=== PATIENT | female | born 1965 | race Caucasian/White ===

== ENCOUNTER 2018-02-05 06:39 | Day surgery (SDC) | payer BC ==
[2018-02-05] MEDS ORDERED: Ringers Lactate 1,000 ML IV ONE (07:57)
[2018-02-05] MEDS ORDERED: Phenylephrine HCl 10 MG/ML 1 ML VIAL ONE (08:16)
[2018-02-05] MEDS ORDERED: GLYCOPYRROLATE 0.2 MG/ML SYR ONE (08:16)
[2018-02-05] MEDS ORDERED: LIDOCAINE VISCOUS 2% SOLN 15 ML UDC ONE (08:37)
[2018-02-05] MEDS ORDERED: PROPOFOL 200 MG/20 ML VIAL IV ONE (09:00)
[2018-02-05] MEDS ORDERED: LIDOCAINE 1% MPF 2 ML AMPULE ONE (09:00)
[2018-02-05] MEDS ORDERED: HYDROCODONE/APAP 10/325 TAB ONE (09:51)
--- NOTE | 2018-02-05 10:48 | RAD REPORT ---
EXAM DESCRIPTION: RAD - Chest Single View - 02/05/2018 10:34 am CLINICAL HISTORY: Status post bronchoscopy. COMPARISON: None. FINDINGS: Portable technique limits examination quality. Right upper lobe lung opacity is again noted. No post bronchoscopy pneumothorax seen. The heart is no rmal in size. No displaced fractures. IMPRESSION: No postprocedure pneumothorax.
[2018-02-05 11:00] VITALS: BP 123/62; TEMP 98.4; O2SAT 100
--- NOTE | 2018-02-05 11:43 | RAD REPORT ---
EXAM DESCRIPTION: RAD - FLUORO-GUIDE FOR BRONCH UPT1HR - 02/05/2018 9:35 am CLINICAL HISTORY: BRONCHOSCOPY COMPARISON: Thorax W/ Con dated 01/16/2018 FINDINGS: Four fluoroscopic spot exposures are submitted from right-sided bronchoscopy procedure. De tails of procedure not available. Total fluoro time 4 minutes 20 seconds.
--- NOTE | 2018-02-09 11:41 | P.OP ---
Date of Service: 02/05/18 (Bronchoscopy with transbronchial biopsy of the upper lobe BAL and wire brush) Findings and Operative Technique Patient is 52 years of age admitted with a right upper lobe lung mass active smoker as a reason for bronchoscopy Narrative report after obtaining informed consent from the patient she was premedicated by anesthesia Finding normal normal vocal cords normal trachea normal bhavna normal right and left-sided bronchial anatomy no endobronchial lesions visible Was very difficult for me to access the mass with biopsy forceps multiple biopsy specimens were taken as stated above patient tolerated the procedure very well did not experience any hypertension arrhythmias findings discussed with the relative
== END 2018-02-05 10:57 | disposition home or self-care (01) ==
LOC: ENDO 06:39
PROVIDERS: ATTEND Internal Medicine Sleep Medicine
PROC: 0B9C8ZX Drainage of Right Upper Lung Lobe, Via Natural or Artificial Opening Endoscopic, Diagnostic (ICD-10-PCS; 2018-02-05)
PROC: 0BDC8ZX Extraction of Right Upper Lung Lobe, Via Natural or Artificial Opening Endoscopic, Diagnostic (ICD-10-PCS; 2018-02-05)
PROC: 0BDC8ZX Extraction of Right Upper Lung Lobe, Via Natural or Artificial Opening Endoscopic, Diagnostic (ICD-10-PCS; principal; 2018-02-05 08:00)
DX: R91.8 Other nonspecific abnormal finding of lung field (principal); F32.9 Major depressive disorder, single episode, unspecified; K21.9 Gastro-esophageal reflux disease without esophagitis; F17.210 Nicotine dependence, cigarettes, uncomplicated; J44.9 Chronic obstructive pulmonary disease, unspecified; C34.91 Malignant neoplasm of unspecified part of right bronchus or lung
CPT/HCPCS: 71045; 76000; 87015; 87102; 87116; 87206; 88108; 88305; 88312; J2001; J2370

== ENCOUNTER 2018-02-13 11:54 | Inpatient (IN) | payer BC ==
[2018-02-13 13:05] LABS: Urine Blood 1+ (NEG); Urine Glucose NEGATIVE (NEG); Urine Protein 2+ (NEG); Urine Specific Gravity 1.015 (1.005-1.030); Urine pH 5.5 (5.0-7.0)
[2018-02-13] MEDS ORDERED: NA CHLORIDE 0.9% 500 ML ONE (13:05)
[2018-02-13 13:19] LABS: Urine Amorphous Sediment 1+ /HPF (NONE SEEN); Urine Bacteria 20-50 /HPF (<20); Urine Culture Reflex Order NOT NEEDED; Urine Mucus LIGHT /HPF (NONE SEEN); Urine RBC NONE SEEN /HPF (NONE SEEN)
[2018-02-13 13:37] LABS: Absolute Monocytes 1.5 K/uL (0.1-1.3); Absolute Neutrophil 14.1 K/uL (1.8-8.0); Basophils % 0.3 % (0-1.3); Eosinophils % 0.8 % (0-4.4); Lymphocytes % 11.2 % (15.3-44.8); MCH 30.2 pg (27.0-35.0); MCV 92.4 fL (80-100); MPV 10.3 fL (7.6-11.3); Monocytes % 8.3 % (3.3-12.3); RBC Red Blood Cell Count 4.01 M/uL (3.86-4.86)
[2018-02-13] MEDS ORDERED: ACETAMINOPHEN 325 MG TABLET ONE (13:44)
[2018-02-13] MEDS ORDERED: CEFTRIAXONE/SWI 1gm 1 GM/10 ML SYR ONE (13:53)
[2018-02-13 13:54] LABS: Albumin 2.8 g/dL (3.4-5.0); Bilirubin Direct 0.6 mg/dL (0-0.2); Bilirubin Total 1.3 mg/dL (0.2-1.0); Potassium 3.3 mmol/L (3.5-5.1); Protein, Total 7.5 g/dL (6.4-8.2)
--- NOTE | 2018-02-13 14:23 | RAD REPORT ---
EXAM DESCRIPTION: Abe Pa And Lat (2 Views)02/13/2018 2:12 pm CLINICAL HISTORY: Cough COMPARISON: February 11 FINDINGS: The right upper lobe mass is unchanged. Minimal worsening in the right upper lobe reticul ar opacities has occurred. Mild right upper lobe atelectasis is present. The remainder of the exam is unremarkable
--- NOTE | 2018-02-13 14:40 | EDPHYS ---
Physician Documentation [facility] Name: Roberta Villagomez Age: 52 yrs Sex: Female : 1965 Arrival Date: 02/13/2018 Time: 11:56 Bed 20 Private MD: Anthony Hutton T ED Physician Rey Herndon HPI: 02/13 14:31 This 52 yrs old Female presents to ER via Ambulatory with complaints of Back rn Pain, Fever. 14:31 The patient presents with pain that is acute. The symptoms are located in the low back. rn Onset: The symptoms/episode began/occurred at an unknown time. The pain does not radiate. Associated signs and symptoms: Pertinent positives: none weakness. Modifying factors: The patient symptoms are alleviated by nothing, the patient symptoms are aggravated by nothing. The patient has experienced a previous episode. Reports being treated as outpt for pneumonia, had lung biopsy 2 weeks ago, presents with persistent fever and lower back pain, + increased urination and frequency.. 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/A - Hysterectomy sv Historical: - Allergies: 12:11 Blue Dye; sv 12:11 Valium; sv 12:11 Morphine; sv 12:11 excedrin; sv 12:11 larg quantities of codeine; sv - Home Meds: 12:11 Synthroid 125 mcg Oral tab 1 tab once daily [Active]; meloxicam 15 mg oral tab 1 tab sv once daily [Active]; montelukast 10 mg oral tab 1 tab once daily [Active]; Zyrtec 10 mg Oral tab 1 tab once daily [Active]; Amoxicillin-Pot Clavulanate Oral [Active]; alprazolam 0.5 mg Oral tab TID prn [Active]; [place] 10-325 mg Oral tab 1 tab every 6 hours [Active]; amitriptyline 10 mg Oral tab daily [Active]; Zantac 150 mg Oral tab 1 tab once daily [Active]; - PMHx: 12:11 None; sv - PSHx: 12:11 Cholecystectomy; Hysterectomy; sv - Family history:: not pertinent. - Hospitalizations: : No recent hospitalization is reported. ROS: 14:31 Constitutional: Negative for weight loss, Eyes: Negative for injury, pain, redness, rn and discharge, Neck: Negative for injury, pain, and swelling, Cardiovascular: Negative for chest pain, palpitations, and edema, Respiratory: Negative for wheezing, and pleuritic chest pain Abdomen/GI: Negative for abdominal pain, diarrhea, and constipation, Back: + lower back pain MS/Extremity: Negative for injury and deformity, Skin: Negative for injury, rash, and discoloration, Neuro: Negative for headache, numbness, tingling, and seizure. Exam: 14:35 Constitutional: This is a well developed, well nourished patient who is awake, alert, rn and in no acute distress. Head/Face: Normocephalic, atraumatic. Eyes: Pupils equal round and reactive to light, extra-ocular motions intact. Lids and lashes normal. Conjunctiva and sclera are non-icteric and not injected. Cornea within normal limits. Periorbital areas with no swelling, redness, or edema. Neck: Trachea midline, no thyromegaly or masses palpated, and no cervical lymphadenopathy. Supple, full range of motion without nuchal rigidity, or vertebral point tenderness. No Meningismus. Cardiovascular: tachycardic, regular, no murmur Respiratory: + mild tachypnea, no retractions, speaking full sentences Abdomen/GI: Soft, non-tender, with normal bowel sounds. No distension or tympany. No guarding or rebound. No evidence of tenderness throughout. Back: No spinal tenderness. No costovertebral tenderness. Full range of motion. MS/ Extremity: Pulses equal, no cyanosis. Neurovascular intact. Full, normal range of motion. Equal circumference. Neuro: Awake and alert, GCS 15, oriented to person, place, time, and situation. Cranial nerves II-XII grossly intact. Motor strength 5/5 in all extremities. Sensory grossly intact. Cerebellar exam normal. Normal gait. Vital Signs: 12:11 BP 96 / 65; Pulse 102; Resp 20; Temp 99; Pulse Ox 97% ; Weight 65.77 kg; Height 5 ft. 5 sv in. (165.10 cm); Pain 0/10; 13:20 Pulse 89; Resp 16; Temp 99.9(O); Pulse Ox 96% on R/A; sg 17:21 BP 112 / 73; Pulse 90; Resp 17; Temp 99.9; Pulse Ox 98% on R/A; Pain 0/10; sg 12:11 Body Mass Index 24.13 (65.77 kg, 165.10 cm) sv Tor Coma Score: 17:21 Eye Response: spontaneous(4). Verbal Response: oriented(5). Motor Response: obeys sg commands(6). Total: 15. MDM: 12:30 Patient medically screened. rn 14:35 Differential diagnosis: UTI, pneumonia. 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 Counseling: I had a detailed discussion with the patient and/or guardian regarding: the historical points, exam findings, and any diagnostic results supporting the discharge/admit diagnosis, lab results, radiology results, the need for further work-up and treatment in the hospital. Admission orders: after a detailed discussion of the patient's condition and case, the admit orders are written by me. Special discussion:. 02/13 12:55 Order name: CBC with Diff; Complete Time: 13:47 rn 02/13 12:55 Order name: Basic Metabolic Panel; Complete Time: 14:19 rn 02/13 12:55 Order name: Urine Culture rn 02/13 12:55 Order name: Urine Microscopic Only; Complete Time: 13:47 rn 02/13 12:55 Order name: Procalcitonin; Complete Time: 14:19 rn 02/13 12:55 Order name: Hepatic Function; Complete Time: 14:19 rn 02/13 12:55 Order name: Lipase; Complete Time: 14:19 rn 02/13 12:55 Order name: XRAY Chest Pa And Lat (2 Views); Complete Time: 14:28 rn 02/13 12:55 Order name: Blood Culture Adult (2) rn 02/13 13:02 Order name: Urine Dipstick--Ancillary (enter results); Complete Time: 13:47 bd 02/13 13:02 Order name: Urine --Ancillary (enter results); Complete Time: 13:47 bd 02/13 12:55 Order name: IV Start; Complete Time: 13:13 rn 02/13 12:55 Order name: Urine Dipstick-Ancillary (obtain specimen); Complete Time: 13:12 rn 02/13 12:55 Order name: Labs collected and sent; Complete Time: 13:12 rn Administered Medications: 13:31 Drug: NS 0.9% 500 ml Route: IV; Rate: bolus; Site: right antecubital; sg 13:45 Drug: Tylenol 650 mg Route: PO; sg 14:30 Follow up: Response: No adverse reaction sg 14:04 Drug: Rocephin - (cefTRIAXone) 1 grams Route: IVPB; Infused Over: 30 mins; Site: right sg antecubital; 14:15 Follow up: Response: No adverse reaction; IV Status: Completed infusion; medication sg administered slow IVP as per pharmacy protocol 15:47 Drug: NS 0.9% 1000 ml Route: IV; Rate: 1000 ml; Site: right antecubital; sg 16:50 Follow up: Response: No adverse reaction; IV Status: Completed infusion; IV Intake: sg 990ml Disposition: 02/13/18 14:40 Hospitalization ordered by Juan Smith for Inpatient Admission. Preliminary diagnosis are Pneumonia, Urinary tract infection, site not specified. - Bed requested for Telemetry/MedSurg (Inpatient). - Status is Inpatient Admission. sg - Condition is Stable. - Problem is an ongoing problem. - Symptoms have improved. UTI on Admission? Yes Signatures: Dispatcher [employer] EDLinda Mora RN RN sv Woody, Diana, RN RN dw Gay, Steven, RN RN Rey Herndon MD MD security intern: (The following items were deleted from the chart) 16:57 14:40 Hospitalization Ordered by Juan Smith DO for Inpatient Admission. Preliminary diagnosis is Pneumonia; Urinary tract infection, site not specified. Bed requested for Telemetry/MedSurg (Inpatient). Status is Inpatient Admission. Condition is Stable. Problem is an ongoing problem. Symptoms have improved. UTI on Admission? Yes. rn 17:28 16:57 02/13/2018 14:40 Hospitalization Ordered by Juan Smith DO for Inpatient sg Admission. Preliminary diagnosis is Pneumonia; Urinary tract infection, site not specified. Bed requested for Telemetry/MedSurg (Inpatient). Status is Inpatient Admission. Condition is Stable. Problem is an ongoing problem. Symptoms have improved. UTI on Admission? Yes. ned
--- NOTE | 2018-02-13 14:40 | ER ---
Nurse's Notes [facility] Name: Roberta Villagomez Age: 52 yrs Sex: Female : 1965 Arrival Date: 02/13/2018 Time: 11:56 Bed 20 Private MD: Anthony Hutton T Diagnosis: Pneumonia;Urinary tract infection, site not specified Presentation: 02/13 12:06 Presenting complaint: Patient states: chest xray already taken by Dr Escoto, dx sv pneumonia. Urine in "brown tint." c/o back pain. Fever x 3 days Tmax 103. Tylenol taken about 3 hours ago. lung biopsy done and mass found on 02/05/18. Transition of care: patient was not received from another setting of care. Onset of symptoms was February 05, 2018. Risk Assessment: Do you want to hurt yourself or someone else? Patient reports no desire to harm self or others. Care prior to arrival: None. 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/A - Hysterectomy sv Historical: - Allergies: 12:11 Blue Dye; sv 12:11 Valium; sv 12:11 Morphine; sv 12:11 excedrin; sv 12:11 larg quantities of codeine; sv - Home Meds: 12:11 Synthroid 125 mcg Oral tab 1 tab once daily [Active]; meloxicam 15 mg oral tab 1 tab sv once daily [Active]; montelukast 10 mg oral tab 1 tab once daily [Active]; Zyrtec 10 mg Oral tab 1 tab once daily [Active]; Amoxicillin-Pot Clavulanate Oral [Active]; alprazolam 0.5 mg Oral tab TID prn [Active]; [place] 10-325 mg Oral tab 1 tab every 6 hours [Active]; amitriptyline 10 mg Oral tab daily [Active]; Zantac 150 mg Oral tab 1 tab once daily [Active]; - PMHx: 12:11 None; sv - PSHx: 12:11 Cholecystectomy; Hysterectomy; sv - Family history:: not pertinent. - Hospitalizations: : No recent hospitalization is reported. Screenin:30 Abuse screen: Denies threats or abuse. Denies injuries from another. Nutritional sg screening: No deficits noted. Tuberculosis screening: No symptoms or risk factors identified. Never had TB. Fall Risk None identified. Assessment: 12:30 General: Appears in no apparent distress. uncomfortable, ill, slender, well groomed, sg well developed, well nourished, Behavior is calm, cooperative, appropriate for age. Pain: Complains of pain in left mid back and right mid back Quality of pain is described as aching, tender. Neuro: Level of Consciousness is awake, alert, obeys commands, Oriented to person, place, time, situation, Vice President Safety are equal bilaterally Moves all extremities. Full function Gait is steady, Speech is normal, Facial symmetry appears normal. Cardiovascular: Heart tones S1 S2 present Pulses are palpable in right radial artery and left radial artery. Respiratory: Reports shortness of breath on exertion Airway is patent Respiratory effort is even, unlabored, Respiratory pattern is regular, symmetrical, Breath sounds are diminished in right posterior middle lobe and right posterior lower lobe. GI: No signs and/or symptoms were reported involving the gastrointestinal system. : Reports pain in bilateral flank(s), dark urine. EENT: No signs and/or symptoms were reported regarding the EENT system. Derm: Skin is pink, warm \\T\\ dry. Musculoskeletal: No signs and/or symptoms reported regarding the musculoskeletal system. Vital Signs: 12:11 BP 96 / 65; Pulse 102; Resp 20; Temp 99; Pulse Ox 97% ; Weight 65.77 kg; Height 5 ft. 5 sv in. (165.10 cm); Pain 0/10; 13:20 Pulse 89; Resp 16; Temp 99.9(O); Pulse Ox 96% on R/A; sg 17:21 BP 112 / 73; Pulse 90; Resp 17; Temp 99.9; Pulse Ox 98% on R/A; Pain 0/10; sg 12:11 Body Mass Index 24.13 (65.77 kg, 165.10 cm) sv Tor Coma Score: 17:21 Eye Response: spontaneous(4). Verbal Response: oriented(5). Motor Response: obeys sg commands(6). Total: 15. ED Course: 11:56 Patient arrived in ED. mr 11:56 Anthony Hutton MD is Private Physician. mr 12:08 Triage completed. sv 12:11 Arm band placed on left wrist. sv 12:30 Rey Herndon MD is Attending Physician. rn 13:20 Inserted saline lock: 22 gauge in right. 5 13:30 Franck Ferrari, RN is Primary Nurse. sg 13:35 Initial lab(s) drawn, by ms, sent to lab. First set of blood cultures drawn by me, 5 Second set of blood cultures drawn by me, Urine collected:. 13:54 Inserted saline lock: 22 gauge in right antecubital area, using aseptic technique. 5 13:56 Patient has correct armband on for positive identification. Placed in gown. Bed in low mh5 position. Call light in reach. Side rails up X2. Adult w/ patient. Warm blanket given. Pulse ox on. NIBP on. 14:00 Patient moved to radiology via wheelchair. jb2 14:09 X-ray completed. Patient tolerated procedure well. jb2 14:11 XRAY Chest Pa And Lat (2 Views) In Process Unspecified. EDMS 14:39 Juan Smith DO is Hospitalizing Provider. rn Administered Medications: 13:31 Drug: NS 0.9% 500 ml Route: IV; Rate: bolus; Site: right antecubital; sg 13:45 Drug: Tylenol 650 mg Route: PO; sg 14:30 Follow up: Response: No adverse reaction sg 14:04 Drug: Rocephin - (cefTRIAXone) 1 grams Route: IVPB; Infused Over: 30 mins; Site: right sg antecubital; 14:15 Follow up: Response: No adverse reaction; IV Status: Completed infusion; medication sg administered slow IVP as per pharmacy protocol 15:47 Drug: NS 0.9% 1000 ml Route: IV; Rate: 1000 ml; Site: right antecubital; sg 16:50 Follow up: Response: No adverse reaction; IV Status: Completed infusion; IV Intake: sg 990ml Intake: 16:50 IV: 990ml; Total: 990ml. sg Outcome: 14:40 Decision to Hospitalize by Provider. rn 17:28 Patient left the ED. sg Signatures: Dispatcher [employer] EDND Linda Horowitz RN RN sv Gay, Steven, RN RN sg Rivera, Maria Atif Aparicio 2 Rey Herndon MD MD rn Martinez, Maria [facility] Corrections: (The following items were deleted from the chart) 16:26 13:20 Pulse 89bpm; Resp 90bpm; Pulse Ox 96% RA; Temp 99.9F Oral; sg sg
[2018-02-13] MEDS ORDERED: IPRATROPIUM BROM 0.5MG/2.5ML NEB PRN (15:09)
[2018-02-13] MEDS ORDERED: BENZONATATE 100 MG CAP PO PRN (15:09)
[2018-02-13] MEDS ORDERED: ALBUTEROL 2.5 MG/3 ML NEB SOL NEB PRN (15:09)
--- NOTE | 2018-02-13 15:25 | P.HP ---
Certification for Inpatient Patient admitted to: Inpatient With expected LOS: >2 Midnights Patient will require the following post-hospital care: None Practitioner: I am a practitioner with admitting privileges, knowledge of patient current condition, hospital course, and medical plan of care. Services: Services provided to patient in accordance with Admission requirements found in Title 42 Section 412.3 of the Code of Federal Regulations Patient History Date of Service: 02/13/18 Primary Care Provider: Dr. Hutton; Pulmonary-Dr. Escoto Reason for admission: Shortness of breath, fever History of Present Illness: 52-year-old female presented emergency room with increasing cough, fever and shortness of breath. Patient reports that she has been having increasing cough, shortness of breath and fever over the last several days. 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 She had been placed on Augmentin for suspected upper respiratory infection. The patient has seen pulmonology for a right upper lobe mass. Patient recently had a bronchoscopy done. Patient is to have a CT- guided needle biopsy to further evaluate the lung mass. From what she mentions , pathology was not conclusive to rule out cancer. She has reported increasing cough with sputum. Mild blood production noted. Patient reports fever as high as 102. She has been having headaches, shortness of breath and weakness. She has been reporting some dysuria. Indigestion also noted. In the ER patient was evaluated. Blood pressure is slightly decreased. Patient given IV fluids. Her oxygen level remained stable. In the ER white count elevated at 17.8, sodium 137, potassium 3.3, BUN of 16, creatinine 0.9. Urine was positive for UTI. Chest x-ray showed worsening right opacity. Right upper lung mass unchanged. Total bilirubin was elevated at 1.3, direct bilirubin 6.6, AST 69, ALT 79, alk-phos 119. Pro calcitonin was elevated at 0.71. Patient was admitted for treatment. When I evaluated the patient the ER, she appeared comfortable. She did not appear in any respiratory distress Patient reports a history of tobacco abuse but plans to quit. Patient also reports a history of hypothyroidism. Right upper lobe mass has been recently evaluated. There is a family history of small cell lung cancer. Allergies morphine Allergy (Verified 02/05/18 08:19) Itching acetaminophen [From Excedrin Migraine] Adverse Reaction (Verified 02/05/18 08:19 ) Nausea/Vomiting aspirin [From Excedrin Migraine] Adverse Reaction (Verified 02/05/18 08:19) Nausea/Vomiting caffeine [From Excedrin Migraine] Adverse Reaction (Verified 02/05/18 08:19) Nausea/Vomiting codeine Adverse Reaction (Verified 02/05/18 08:19) Nausea/Vomiting diazepam [From Valium] Adverse Reaction (Verified 02/05/18 08:19) Nausea/Vomiting Home medications list reviewed: Yes Home Medications: Amitriptyline [Elavil] 10 mg PO BEDTIME 02/05/18 Cetirizine HCl [Zyrtec] 10 mg PO DAILY 02/05/18 Levothyroxine [Synthroid] 125 mcg PO [id number] 02/05/18 Meloxicam [Mobic] 15 mg PO DAILY 02/05/18 Montelukast [Singulair] 10 mg PO DAILY 02/05/18 Ranitidine [Zantac] 150 mg PO DAILY 02/05/18 - Past Medical/Surgical History Diabetic: No -: COPD -: Tobacco abuse -: Hypothyroidism -: GERD -: Allergic rhinitis -: Right upper lobe mass -: Hysterectomy -: Cholecystectomy Psychosocial/ Personal History: Patient is . Patient has 1 child. 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 She currently has a boyfriend. - Family History Father -: Other (see notes) (Alzheimer's dementia) Mother -: Heart disease, Hypertension, Stroke, Cancer (Small-cell lung cancer, brain cancer) - Social History Smoking Status: Heavy Tobacco smoker (>10 cigarettes/day) Counseled patient to stop smoking for: less than 10 minutes Smoking therapy provided: Yes Patient receptive to therapy: Yes Alcohol use: No CD- Drugs: No Caffeine use: Yes Place of Residence: Home Review of Systems General: Fever, Chills, Sweats, Weakness, Malaise, As per HPI Eyes: Unremarkable ENT: Nose Congestion, As per HPI Respiratory: Cough, Shortness of Breath, SOB with Excertion, Sputum, Wheezing, As per HPI Cardiovascular: Unremarkable Gastrointestinal: As per HPI Genitourinary: Dysuria, Frequency, As per HPI Musculoskeletal: Back Pain, As per HPI Integumentary: As per HPI Neurological: Weakness, As per HPI Lymphatics: Unremarkable Physical Examination - Physical Exam General: Alert, In no apparent distress, Oriented x3, Cooperative HEENT: Atraumatic, Normocephalic, PERRLA, Other (Dry mucous membranes) Neck: Supple, No Thyromegaly Respiratory: Crackles/rales (Right side) Cardiovascular: Normal pulses, Regular rate/rhythm Gastrointestinal: Normal bowel sounds, Soft and benign, Non-distended, No ascites, No masses, No rebound, No guarding, Tenderness (Mild pain to the pelvic region) Musculoskeletal: No erythema, No tenderness, No warmth Integumentary: No tenderness/swelling, No erythema, No warmth, No cyanosis Neurological: Normal speech, Normal strength at 5/5 x4 extr, Normal tone, Normal affect Lymphatics: No axilla or inguinal lymphadenopathy - Studies Laboratory Data (last 24 hrs) 02/13/18 13:20: Sodium 137, Potassium 3.3 L, BUN 16, Creatinine 0.90, Glucose 103, Total Bilirubin 1.3 H, AST 69 H, ALT 79 H, Alkaline Phosphatase 119 H, Lipase 86 02/13/18 13:20: WBC 17.8 H, Hgb 12.1, Hct 37.0, Plt Count 202 Assessment and Plan - Problems (Diagnosis) (1) Pneumonia Current Visit: Yes Status: Acute Plan: Right-sided pneumonia noted. Case discussed with pulmonology. Patient will be started on Levaquin and vancomycin. Suspect sepsis. Will obtain sputum, urine and blood cultures. Will maintain sats above 90%. Will continue IV fluids. Patient recently evaluated for right upper lung mass. Patient had bronchoscopy which was not conclusive to rule out cancer. Patient is expected to have a needle biopsy of the lung in the near future. Continue with COPD treatment. Will monitor closely for changes. Qualifiers: Laterality: right Lung location: lower lobe of lung (2) UTI (urinary tract infection) Current Visit: Yes Status: Acute Plan: Patient has been started on IV antibiotic therapy. Continue as above. Continue IV fluids. Urine culture pending. Qualifiers: Urinary tract infection type: site unspecified Hematuria presence: without hematuria Qualified Code(s): N39.0 - Urinary tract infection, site not specified (3) Sepsis Current Visit: Yes Status: Acute Plan: Suspect sepsis. Continue as above. Patient given IV fluids in the emergency room. Will continue with IV fluids. Monitor electrolytes closely. Continue IV antibiotic therapy. Blood, sputum and urine culture pending. (4) COPD (chronic obstructive pulmonary disease) Current Visit: Yes Status: Chronic Plan: Continue with COPD medication. Maintain sats above 90%. Qualifiers: COPD type: chronic bronchitis Chronic bronchitis type: unspecified Qualified Code(s): J42 - Unspecified chronic bronchitis (5) Lung mass Current Visit: Yes Status: Chronic Plan: This has been evaluated recently. Bronchoscopy pathology is not conclusive to rule out cancer. Patient expected to have a needle biopsy in the near future. Await recommendations from pulmonology. (6) Tobacco abuse Current Visit: Yes Status: Chronic Plan: Patient plans to quit smoking. May need nicotine patch as needed. (7) GERD (gastroesophageal reflux disease) Current Visit: Yes Status: Chronic Plan: Will provide medication. Qualifiers: Esophagitis presence: esophagitis presence not specified Qualified Code(s) : K21.9 - Gastro-esophageal reflux disease without esophagitis (8) Hypothyroidism Current Visit: Yes Status: Chronic Plan: Will need to obtain and restart home medication. Will check tsh. Qualifiers: Hypothyroidism type: unspecified Qualified Code(s): E03.9 - Hypothyroidism , unspecified (9) Elevated liver function tests Current Visit: Yes Status: Acute Plan: Etiology unknown. Will send for hepatitis panel. Will obtain abdominal ultrasound. Will monitor lab closely. (10) Hyperbilirubinemia Current Visit: Yes Status: Acute Plan: Continue as above. (11) Dehydration Current Visit: Yes Status: Acute Plan: Continue with IV fluids. Will monitor closely. Discharge Plan: Home Plan to discharge in: Greater than 2 days - Advance Directives Does patient have a Living Will: No Does patient have a Durable POA for Healthcare: No - Code Status/Comfort Care Code Status Assessed: Yes Time Spent Managing Pts Care (In Minutes): 55
[2018-02-13] MEDS ORDERED: NA CHLORIDE 0.9% 1,000 ML ONE (15:42)
[2018-02-13] MEDS: Levofloxacin500mg IV 500 MG/100 ML BAG IV SCH (16:00)
[2018-02-13] MEDS: NA CHLORIDE 0.9% 1,000 ML IV SCH (16:00)
[2018-02-13] MEDS ORDERED: Levofloxacin500mg IV 500 MG/100 ML BAG IV ONE (16:52)
[2018-02-13] MEDS ORDERED: ENOXAPARIN 40 MG/0.4 ML SQ ONE (16:53)
[2018-02-13] MEDS: ENOXAPARIN 40 MG/0.4 ML SQ SCH (17:00)
[2018-02-13] MEDS ORDERED: PNEUMOCOCCAL VACCINE 0.5 ML IMVAC ONE (19:00)
[2018-02-13] MEDS: ARFORMOTEROL TARTRATE 15 MCG/2 ML VIAL.NEB NEB SCH (19:32)
[2018-02-13] MEDS: ACETAMINOPHEN 500 MG TAB PO PRN (20:00)
[2018-02-13] MEDS: VANCOMYCIN 1.25 GM in NA CHLORIDE 0.9% 250 ML IVPB SCH (20:01)
[2018-02-13] MEDS: IBUPROFEN 400 MG TAB PO PRN (22:26)
[2018-02-14] MEDS: NA CHLORIDE 0.9% 1,000 ML IV SCH ×5 (01:58→22:08)
[2018-02-14 05:26] LABS: Absolute Lymphocytes (CBC) 1.2 K/uL (0.7-4.9); Absolute Monocytes 1.1 K/uL (0.1-1.3); Absolute Neutrophil 11.6 K/uL (1.8-8.0); Basophils % 0.4 % (0-1.3); Eosinophils % 1.1 % (0-4.4); Hematocrit 33.4 % (36.0-45.0); Lymphocytes % 8.7 % (15.3-44.8); MCH 31.5 pg (27.0-35.0); MCV 92.3 fL (80-100); MPV 10.8 fL (7.6-11.3); Monocytes % 7.9 % (3.3-12.3); RBC Red Blood Cell Count 3.62 M/uL (3.86-4.86)
[2018-02-14 05:58] LABS: ALT/SGPT 62 U/L (12-78); AST/SGOT 41 U/L (15-37); Albumin 2.3 g/dL (3.4-5.0); Alkaline Phosphatase 121 U/L (45-117); BUN Blood Urea Nitrogen 7 mg/dL (7-18); Bicarbonate 24 mmol/L (21-32); Bilirubin Total 1.3 mg/dL (0.2-1.0); Glucose Level 93 mg/dL (74-106); Magnesium 1.9 mg/dL (1.8-2.4); Potassium 3.3 mmol/L (3.5-5.1); Protein, Total 6.2 g/dL (6.4-8.2); Sodium Level 140 mmol/L (136-145); Thyroid Stimulating Hormone 0.18 uIU/mL (0.36-3.74)
[2018-02-14] MEDS: PANTOPRAZOLE 40MG TABLET PO SCH (06:22)
[2018-02-14] MEDS: KCL 20 MEQ/100 mL IVPB 20 MEQ/100 ML BAG IV SCH ×2 (07:07→09:38)
[2018-02-14] MEDS: ARFORMOTEROL TARTRATE 15 MCG/2 ML VIAL.NEB NEB SCH ×2 (07:50→19:32)
[2018-02-14] MEDS: ACETAMINOPHEN 500 MG TAB PO PRN ×3 (07:58→23:16)
--- NOTE | 2018-02-14 10:35 | P.PN ---
Subjective Date of Service: 02/14/18 Primary Care Provider: Dr. Hutton; Pulmonary-Dr. Escoto Chief Complaint: Right upper lobe pneumonia Patient is 52 years of age she did undergo bronchoscopy last week for a right upper lobe lung mass which was nondiagnostic patient contacted me earlier on last week complaining of fevers shortness of breath saw her in my office and was prescribed Augmentin, patient call me yesterday over continued to get worse and was admitted to the hospital with a diagnosis of right upper lobe pneumonia that continues to have high fever although is feeling better white count is declining Review of Systems General: Fever, Weakness Respiratory: Cough, Shortness of Breath Physical Examination - Vital Signs Temperature: 104.2 F Blood Pressure: 120/69 Pulse: 112 Respirations: 20 Pulse Ox (%): 94 - Physical Exam General: Alert, Oriented x3 Neck: Supple Respiratory: Clear to auscultation bilaterally, Crackles/rales (Crackles in the right upper zone) Cardiovascular: No edema, Normal S1 S2 - Studies Laboratory Data (last 24 hrs) 02/13/18 13:20: Sodium 137, Potassium 3.3 L, BUN 16, Creatinine 0.90, Glucose 103, Total Bilirubin 1.3 H, AST 69 H, ALT 79 H, Alkaline Phosphatase 119 H, Lipase 86 02/13/18 13:20: WBC 17.8 H, Hgb 12.1, Hct 37.0, Plt Count 202 Assessment & Plan - Problems (Diagnosis) (1) Pneumonia Current Visit: Yes Status: Acute Plan: Patient is 52 years of age admitted with a right upper lobe pneumonia status post bronchoscopy last week failed outpatient antibiotic therapy he is high fever white count elevated on mission is declining cultures pending I have advised her to reschedule the FNA continue with vancomycin and levofloxacin room -air saturation is satisfactory continue with bronchodilators Qualifiers: Laterality: right Lung location: lower lobe of lung
--- NOTE | 2018-02-14 11:06 | RAD REPORT ---
EXAM DESCRIPTION: RAD - Chest Pa And Lat (2 Views) - 02/14/2018 8:43 am CLINICAL HISTORY: follow up pneumonia, right upper lung mass Chest pain. COMPARISON: Chest Pa And Lat (2 Views) dated 02/13/2018; Chest Pa And Lat (2 Views) dated 02/11/2018; Chest Single View dated 02/05/2018; Chest Pa And Lat (2 Views) dated 01/15/2018; Thorax W/ Con dated FINDINGS: Right upper lobe lung opacities slightly progressive peripherally in the right upper lobe since the comparative study. The central portion of the right upper lobe rounded lesion appears more cavitary/necrotic. The left lung is clear. The heart is normal in size. No displaced fractures. IMPRESSION: Mild progression of right upper lobe pulmonary opacities as detailed above.
--- NOTE | 2018-02-14 11:15 | RAD REPORT ---
EXAM DESCRIPTION: US - Abdomen Exam Complete - 02/14/2018 9:51 am CLINICAL HISTORY: Abdominal pain. Elevated liver function, hyperbilirubinemia COMPARISON: No comparisons FINDINGS: The liver is normal in size, shape and echotexture. No focal liver lesions or intrahepatic biliary dilatation is seen. Cholecystectomy. Common bile duct is normal in caliber measuring 3 mm. Both kidneys are normal in size, shape and echotexture. No hydronephrosis, focal lesion of concern or perinephric fluid. The spleen is normal in size measuring 9 cm. The pancreas and aorta are obscured by bowel gas. The visualized aspects of the IVC are grossly normal. IMPRESSION: Unremarkable study except for limited assessment of the pancreas and aorta due to bowel gas. Cholecystectomy.
[2018-02-14] MEDS: VANCOMYCIN 1.25 GM in NA CHLORIDE 0.9% 250 ML IVPB SCH (11:49)
[2018-02-14] MEDS: IPRATROPIUM BROM 0.5MG/2.5ML NEB SCH ×2 (14:07→19:32)
--- NOTE | 2018-02-14 15:00 | PN ---
Date of Progress Note: 02/14/2018 Subjective: Currently the patient is lying in bed. She looks comfortable. Shortness of breath impr kelli. No chest pain. No chills overnight. Actually she had a fever overnight and her temperature w as 104, but not any more. She continued to be tachycardic. No shortness of breath. Blood pressure normal. Physical Examination: Vital Signs: Blood pressure 120/69, respiratory rate 20, pulse 112, temperature 104. General: She is alert and oriented x3. Does not look in any distress. HEENT: Atraumatic, normocephalic. PERRLA. Oral mucosa is moist. Neck: Supple. No JVD. No carotid bruits. Chest: Clear to auscultation with crackles in the right upper lobe. Heart: Tachy. No gallop or murmur. Regular rate and rhythm. Abdomen: Soft, nontender. No masses. No hepatosplenomegaly. Positive bowel sounds. Extremities: No clubbing, cyanosis, or edema. No calf tenderness. Neurologic: Grossly intact. Cranial nerve exam 2 through 12 intact. Normal sensation. Normal refl exes. Normal muscle strength. Laboratory Data: Labs today showed white blood cells down from 17 to 14, hemoglobin 11.4, platelets within normal. Chemistry within normal except for potassium of 3.3, chloride 110, bilirubin 4.3. T down to 41, ALT down to normal. TSH of low at 0.18. Assessment And Plan: 1.Right upper lobe pneumonia. Continue IV antibiotic with Levaquin and vancomycin. The patient had a good response. Her white blood cells are going down, cultures so far negative. She is still spik ing fever. 2.Continue bronchodilator as well. 3.Right upper lobe lung mass status post nondiagnostic biopsy. The patient is scheduled to have an other biopsy in [place] as outpatient. 4.Urinary tract infection. Urine culture less than 10,000. Coli being covered through the Levaquin . 5.Drug abuse. Advised to quit. 6.Chronic obstructive pulmonary disease. Continue bronchodilator. Followed by Dr. Smith. 7.History of hypothyroidism. TSH is low. T4 is slightly elevated. Resume her thyroid medications 125 mcg daily. 8.History of anxiety. Will continue Xanax. 9.Repeated LFTs and hepatitis panel still pending, but they are trending down. 10.Dehydration. On IV fluids. The patient oral intake is good. Follow labs. 11.Deep vein thrombosis prophylaxis with Lovenox. ESA/LITZY Voice ID: [id number] Report ID: [id number]
[2018-02-14] MEDS: Levofloxacin500mg IV 500 MG/100 ML BAG IV SCH (16:33)
[2018-02-14] MEDS: ENOXAPARIN 40 MG/0.4 ML SQ SCH (16:33)
[2018-02-14] MEDS: IBUPROFEN 400 MG TAB PO PRN (16:39)
[2018-02-14] MEDS: AMITRIPTYLINE 10 MG TAB PO SCH (20:51)
[2018-02-15] MEDS: IPRATROPIUM BROM 0.5MG/2.5ML NEB SCH ×4 (01:43→19:07)
[2018-02-15 04:09] LABS: Absolute Lymphocytes (CBC) 1.2 K/uL (0.7-4.9); Absolute Monocytes 1.3 K/uL (0.1-1.3); Absolute Neutrophil 14.3 K/uL (1.8-8.0); Basophils % 0.3 % (0-1.3); Eosinophils % 0.2 % (0-4.4); Hematocrit 30.6 % (36.0-45.0); Lymphocytes % 7.1 % (15.3-44.8); MCH 30.1 pg (27.0-35.0); MCV 91.9 fL (80-100); MPV 10.5 fL (7.6-11.3); Monocytes % 7.5 % (3.3-12.3); RBC Red Blood Cell Count 3.33 M/uL (3.86-4.86)
[2018-02-15 04:33] LABS: ALT/SGPT 48 U/L (12-78); AST/SGOT 27 U/L (15-37); Albumin 2.1 g/dL (3.4-5.0); Alkaline Phosphatase 127 U/L (45-117); BUN Blood Urea Nitrogen 5 mg/dL (7-18); Bicarbonate 20 mmol/L (21-32); Glucose Level 93 mg/dL (74-106); Magnesium 1.6 mg/dL (1.8-2.4); Potassium 3.5 mmol/L (3.5-5.1); Protein, Total 5.7 g/dL (6.4-8.2); Sodium Level 141 mmol/L (136-145)
[2018-02-15] MEDS: VANCOMYCIN 1.25 GM in NA CHLORIDE 0.9% 250 ML IVPB SCH ×2 (05:05→17:42)
[2018-02-15] MEDS: NA CHLORIDE 0.9% 1,000 ML IV SCH (05:05)
[2018-02-15] MEDS: LEVOTHYROXINE SOD 0.125 MG TAB PO SCH (05:06)
[2018-02-15] MEDS: PANTOPRAZOLE 40MG TABLET PO SCH (05:06)
[2018-02-15] MEDS ORDERED: POTASSIUM 25 MEQ EFFERV TAB PO ONE (05:37)
[2018-02-15] MEDS: ONDANSETRON 4 MG/2 ML VIAL IV PRN (06:23)
[2018-02-15] MEDS: IBUPROFEN 400 MG TAB PO PRN ×3 (06:26→21:58)
[2018-02-15] MEDS: ARFORMOTEROL TARTRATE 15 MCG/2 ML VIAL.NEB NEB SCH ×2 (07:48→19:07)
[2018-02-15] MEDS ORDERED: MAGNESIUM SULFATE 1 gm IVPB 1 GM/100 ML BAG IV ONE (08:00)
[2018-02-15] MEDS: MELOXICAM 7.5 MG TAB PO SCH (08:48)
[2018-02-15] MEDS: MONTELUKAST 10 MG TAB PO SCH (08:49)
[2018-02-15] MEDS: CETIRIZINE HCL 5 MG TABLET PO SCH (08:49)
[2018-02-15] MEDS: RANITIDINE 150 MG TABLET PO SCH (08:49)
--- NOTE | 2018-02-15 10:22 | P.PN ---
Subjective Date of Service: 02/15/18 Primary Care Provider: Dr. Hutton; Pulmonary-Dr. Escoto Chief Complaint: Right upper lobe pneumonia Patient is feeling better coughing up some productive sputum no fever today fever seems to be declining no chest pain Review of Systems General: Weakness Respiratory: Cough, Shortness of Breath Physical Examination - Vital Signs Temperature: 98.7 F Blood Pressure: 103/59 Pulse: 96 Respirations: 18 Pulse Ox (%): 94 - Physical Exam General: Alert, Oriented x3 Respiratory: Clear to auscultation bilaterally, Crackles/rales (Crackles on the right side), Expiratory wheezes Cardiovascular: No edema, Regular rate/rhythm - Studies Microbiology Data (last 24 hrs): 02/13/18 12:45 Clean Catch Urine [place] Count - Final <10,000 CFU/ML. 02/13/18 12:45 Clean Catch Urine - Final Assessment & Plan - Problems (Diagnosis) (1) Pneumonia Current Visit: Yes Status: Acute Plan: Patient admitted with right upper lobe pneumonia white count is stable on broad- spectrum antibiotics change to p.o. high-dose Levaquin continue with vancomycin repeat sputum cultures chest x-rays Dc IV fluids Qualifiers: Laterality: right Lung location: lower lobe of lung
[2018-02-15] MEDS: ACETAMINOPHEN 500 MG TAB PO PRN (13:42)
--- NOTE | 2018-02-15 13:43 | PN ---
Subjective: Currently, the patient is sitting in the chair. She is doing well. She has not had a g ood night sleep last night. She had insomnia. She has no significant shortness of breath, but she c ontinued to have cough. She spiked a fever as well yesterday up to 102. This morning, she had a fev er of 99.8. at the bedside. Objective: Vital Signs: Blood pressure is 100/59, respiratory rate 18, pulse 87, temperature 98.3. General: The patient is alert and oriented x3. Does not look in any distress. HEENT: Atraumatic, normocephalic. PERRLA. Oral mucosa is moist. Neck: Supple. No JVD. No bruits. Chest: Clear to auscultation with fine crackles on the right base with expiratory wheezing. Heart: Regular rate and rhythm. S1, S2 normal. No gallop or murmur. Abdomen: Soft. No masses. No hepatosplenomegaly. Positive bowel sounds. Extremities: No clubbing, cyanosis, or edema. No calf tenderness. Neurologic: Grossly intact. Laboratory Data: Today, white blood cells up from 14 to 16.8, hemoglobin 10, platelets 201. Crime Prevention Worker ry within normal including potassium back to normal, magnesium 1.6, bilirubin down to normal. Hepati tis profile is still pending. Chest x-ray from yesterday showed mild progression of right upper lobe pulmonary opacities. Assessment And Plan: 1.Right lower lobe pneumonia. Continue antibiotic with vancomycin and Levaquin. Dr. Tigist lacy hed the patient to oral Levaquin. White blood cells slightly up, blood cultures so far all negative. The patient has not spiked fever in the last 12 hours, but earlier. Continue bronchodilators. [facility] x-ray yesterday showed mild progression of pneumonia. We will repeat chest x-ray tomorrow morning . 2.Questionable urinary tract infection. Culture of the urine showed less than 10,000 colony, most l ikely contamination. 3.Chronic obstructive pulmonary disease, emphysema. Continue bronchodilator. Followed by Dr. Alexander causey. 4.Hypothyroidism. Continue Synthroid 125 mcg. 5.History of anxiety. She is on p.r.n. Xanax, which can be used also for her insomnia. 6.Elevated liver function tests. Bilirubin down to normal. Hepatitis profile ordered on Friday and still pending. 7.Deep venous thrombosis prophylaxis with Lovenox. 8.Hypomagnesemia. We will place on magnesium protocol. 9.Right upper lobe lung mass reported nondiagnostic biopsy. The patient will schedule for another b iopsy in [place] as outpatient. Discharge Plan: Depending on how the patient is feeling tomorrow and hopefully home in the next 24-4 8 hours. ESA/LITZY Voice ID: [id number] Report ID: [id number]
[2018-02-15 15:42] VITALS: BMI 23.9
[2018-02-15 16:43] LABS: Magnesium 1.9 mg/dL (1.8-2.4)
[2018-02-15] MEDS: levoFLOXacin 750 MG TAB PO SCH (17:42)
[2018-02-15] MEDS: ENOXAPARIN 40 MG/0.4 ML SQ SCH (17:42)
[2018-02-15] MEDS: AMITRIPTYLINE 10 MG TAB PO SCH (20:13)
[2018-02-16] MEDS: IPRATROPIUM BROM 0.5MG/2.5ML NEB SCH ×4 (01:54→20:00)
[2018-02-16] MEDS: ONDANSETRON 4 MG/2 ML VIAL IV PRN (02:46)
[2018-02-16] MEDS: ACETAMINOPHEN 500 MG TAB PO PRN ×3 (02:53→20:44)
[2018-02-16] MEDS: VANCOMYCIN 1.25 GM in NA CHLORIDE 0.9% 250 ML IVPB SCH ×2 (04:05→17:00)
[2018-02-16] MEDS: ALPRAZOLAM 0.5 MG TABLET PO PRN ×2 (04:10→21:19)
[2018-02-16 04:24] LABS: Absolute Lymphocytes (CBC) 0.8 K/uL (0.7-4.9); Absolute Monocytes 1.1 K/uL (0.1-1.3); Absolute Neutrophil 11.9 K/uL (1.8-8.0); Basophils % 0.2 % (0-1.3); Hematocrit 29.9 % (36.0-45.0); Lymphocytes % 5.9 % (15.3-44.8); MCH 30.3 pg (27.0-35.0); MCV 92.2 fL (80-100); MPV 10.7 fL (7.6-11.3); Monocytes % 7.9 % (3.3-12.3); RBC Red Blood Cell Count 3.24 M/uL (3.86-4.86)
[2018-02-16 04:38] LABS: ALT/SGPT 52 U/L (12-78); AST/SGOT 42 U/L (15-37); Albumin 1.8 g/dL (3.4-5.0); Alkaline Phosphatase 148 U/L (45-117); BUN Blood Urea Nitrogen 6 mg/dL (7-18); Bicarbonate 23 mmol/L (21-32); Bilirubin Total 0.7 mg/dL (0.2-1.0); Glucose Level 96 mg/dL (74-106); Magnesium 1.7 mg/dL (1.8-2.4); Potassium 3.3 mmol/L (3.5-5.1); Protein, Total 5.4 g/dL (6.4-8.2); Sodium Level 142 mmol/L (136-145)
[2018-02-16] MEDS: LEVOTHYROXINE SOD 0.125 MG TAB PO SCH (05:50)
[2018-02-16] MEDS ORDERED: MAGNESIUM SULFATE 1 gm IVPB 1 GM/100 ML BAG IV ONE (06:00)
[2018-02-16] MEDS ORDERED: POTASSIUM 25 MEQ EFFERV TAB PO ONE ×2 (06:30→14:00)
[2018-02-16] MEDS: PANTOPRAZOLE 40MG TABLET PO SCH (06:40)
[2018-02-16] MEDS: ARFORMOTEROL TARTRATE 15 MCG/2 ML VIAL.NEB NEB SCH ×2 (07:41→20:00)
--- NOTE | 2018-02-16 07:49 | RAD REPORT ---
EXAM DESCRIPTION: Abe Single View02/16/2018 6:49 am CLINICAL HISTORY: Chest pain COMPARISON: February 14 FINDINGS: Right upper lobe cavity appears enlarged. Mild worsening in right lung opacities has also progressed. No other change is noted
[2018-02-16] MEDS: IBUPROFEN 400 MG TAB PO PRN ×2 (07:54→15:53)
[2018-02-16] MEDS: CETIRIZINE HCL 5 MG TABLET PO SCH (08:10)
[2018-02-16] MEDS: MONTELUKAST 10 MG TAB PO SCH (08:10)
[2018-02-16] MEDS: MELOXICAM 7.5 MG TAB PO SCH (08:10)
[2018-02-16] MEDS: RANITIDINE 150 MG TABLET PO SCH (08:11)
[2018-02-16] MEDS ORDERED: HYDROCODONE/CHLORPHEN 5 ML/OSYR PO PRN (08:51)
--- NOTE | 2018-02-16 09:01 | P.PN ---
Subjective Date of Service: 02/16/18 Primary Care Provider: Dr. Hutton; Pulmonary-Dr. Escoto Chief Complaint: Right upper lobe pneumonia Subjective: Other (Patient with increased sputum production.) Physical Examination - Vital Signs Temperature: 99.6 F Blood Pressure: 138/77 Pulse: 108 Respirations: 20 Pulse Ox (%): 96 - Physical Exam General: Alert, In no apparent distress, Oriented x3, Cooperative HEENT: Atraumatic Neck: Supple Respiratory: Diminished (Slightly diminished to the right side) Cardiovascular: Normal pulses, Regular rate/rhythm Gastrointestinal: Normal bowel sounds, Soft and benign, Non-distended, No tenderness, No masses, No rebound, No guarding Musculoskeletal: No erythema, No tenderness, No warmth Integumentary: No erythema, No warmth, No cyanosis Neurological: Normal speech, Normal strength at 5/5 x4 extr, Normal tone, Normal affect Lymphatics: No axilla or inguinal lymphadenopathy - Studies Microbiology Data (last 24 hrs): 02/13/18 12:45 Clean Catch Urine [place] Count - Final <10,000 CFU/ML. 02/13/18 12:45 Clean Catch Urine - Final Medications List Reviewed: Yes Assessment & Plan - Problems (Diagnosis) (1) Pneumonia Onset Date: 02/16/18 Current Visit: Yes Status: Acute Plan: X-ray shows cavitary area to the right upper lung. Case discussed with pulmonology. Will continue with Levaquin and vancomycin. IV Zosyn added. Will obtain CT scan. Patient will be placed in isolation. Sputum culture for AFB will be obtained. Will start IV fluids. Will maintain sats above 90%. Overall improved. Qualifiers: Laterality: right Lung location: lower lobe of lung (2) Sepsis Onset Date: 02/16/18 Current Visit: Yes Status: Acute Plan: Continue with above plan of care. (3) COPD (chronic obstructive pulmonary disease) Onset Date: 02/16/18 Current Visit: Yes Status: Chronic Plan: Continue with COPD medication. Maintain sats above 90%. Qualifiers: COPD type: chronic bronchitis Chronic bronchitis type: unspecified Qualified Code(s): J42 - Unspecified chronic bronchitis (4) Lung mass Onset Date: 02/16/18 Current Visit: Yes Status: Chronic Plan: This has been evaluated recently. Bronchoscopy pathology is not conclusive to rule out cancer. Patient with suspected right cavitary lesion to the right upper lobe. Doubt lung cancer process. Case discussed with pulmonology. (5) Tobacco abuse Onset Date: 02/16/18 Current Visit: Yes Status: Chronic Plan: Patient plans to quit smoking. Will provide nicotine patch as needed. (6) GERD (gastroesophageal reflux disease) Onset Date: 02/16/18 Current Visit: Yes Status: Chronic Plan: Will provide medication. Qualifiers: Esophagitis presence: esophagitis presence not specified Qualified Code(s) : K21.9 - Gastro-esophageal reflux disease without esophagitis (7) Hypothyroidism Onset Date: 02/16/18 Current Visit: Yes Status: Chronic Plan: Continue with medication Qualifiers: Hypothyroidism type: unspecified Qualified Code(s): E03.9 - Hypothyroidism , unspecified (8) Elevated liver function tests Onset Date: 02/16/18 Current Visit: Yes Status: Acute Plan: Etiology unknown. Hepatitis panel pending (9) Hyperbilirubinemia Onset Date: 02/16/18 Current Visit: Yes Status: Acute Plan: Continue as above. (10) Dehydration Onset Date: 02/16/18 Current Visit: Yes Status: Acute Plan: Continue with IV fluids. Will monitor closely. (11) Cavitary pneumonia Current Visit: Yes Status: Acute Plan: Continue as above (12) Hypokalemia Current Visit: Yes Status: Acute Plan: Continue to monitor and replace. Replacement protocol in place. (13) Hypomagnesemia Current Visit: Yes Status: Acute Plan: Continue to monitor and replace. Replaced in protocol in place. Discharge Plan: Home Plan to discharge in: Greater than 2 days Time Spent Managing Pts Care (In Minutes): 55
[2018-02-16] MEDS: PIPER/TAZO/NS 4.5gm 4.5 GM/100 ML BAG IVPB SCH ×3 (09:32→18:11)
[2018-02-16] MEDS: NACHLORIDE 0.45% 1,000 ML IV SCH ×2 (10:41→22:20)
--- NOTE | 2018-02-16 11:30 | RAD REPORT ---
EXAM DESCRIPTION: CT - Thorax Wo Con CLINICAL HISTORY: Chest pain pneumonia COMPARISON: Thorax W/ Con dated 01/16/2018; Abdomen Exam Complete dated 02/14/2018; Chest Single View dated 02/16/2018 FINDINGS: Significant airspace consolidation is seen involving the right middle lobe and posterior a spect of the right upper lobe. The findings are significantly progressive since 01/16/2018. A large c avitary component is seen in the right upper lobe measuring 4 x 6 cm. Small right pleural effusion. N o pneumothorax. Small hiatal hernia. Enlarged adenopathy is present in the right hilar station measuring 2.6 x 2.1 cm, precarinal and pret srinivas stations measuring 2.2 x 1.1 cm and 1.5 x 1.6 cm respectively. No concerning bony finding. No gross upper abdominal finding. All CT scans are performed using dose optimization technique as appropriate and may include automated exposure control or mA/KV adjustment according to patient size. IMPRESSION: Significant progression in right upper lobe and right middle lobe airspace consolidation with large cavitary component in the right upper lobe. Given the rapid progression, infection is the most likely etiology including the possibility of tuberculosis, fungal or cavitary pneumonia.
--- NOTE | 2018-02-16 12:58 | P.PN ---
Subjective Date of Service: 02/16/18 Primary Care Provider: Dr. Hutton; Pulmonary-Dr. Escoto Chief Complaint: Right upper lobe pneumonia Subjective: Worsening Patient is still complaining of fever coughing up copious amounts of productive sputum chest x-rays abnormal now shows right upper lobe cavitary changes Review of Systems General: Weakness Respiratory: Cough, Shortness of Breath, Pleuritic Pain Physical Examination - Vital Signs Temperature: 98.6 F Blood Pressure: 102/65 Pulse: 96 Respirations: 20 Pulse Ox (%): 96 - Physical Exam General: Alert, Oriented x3, Mild distress Neck: Supple Respiratory: Crackles/rales (Crackles in the right upper zone), Expiratory wheezes Cardiovascular: No edema, Regular rate/rhythm - Studies Medications List Reviewed: Yes Assessment & Plan - Problems (Diagnosis) (1) Pneumonia Onset Date: 02/16/18 Current Visit: Yes Status: Acute Plan: Patient is 52 years of age admitted with a right upper lobe pneumonia she has progressive cavitary changes in the right upper lobe recent bronchoscopy was done inflammatory changes nursing staff to request preliminary results for AFB and fungus from [employer] [facility] labs I have added Zosyn AFB cultures ordered again repeat sputum cultures pending continue with vanc and p.o. levofloxacin white count is declining patient has progression of for cavitary pneumonia on the CT scan Qualifiers: Pneumonia type: due to unspecified organism Laterality: right Lung location: lower lobe of lung Qualified Code(s): J18.1 - Lobar pneumonia, unspecified organism
--- NOTE | 2018-02-16 15:27 | ECHO ---
HEIGHT: 5 ft 5 in WEIGHT: 144 lb 0 oz DATE OF STUDY: 02/16/[address]: Juan Smith DO 2-DIMENSIONAL: YES M.MODE: YES DOPPLER: YES COLOR FLOW: YES TDS: NO PORTABLE: NO DEFINITY: NO BUBBLE STUDY: NO DIAGNOSIS: SHORTNESS OF BREATH CARDIAC HISTORY: CATHERIZATION: NO SURGERY: NO PROSTHETIC VALVE: NO PACEMAKER: NO MEASUREMENTS (cm) DIASTOLIC (NORMALS) SYSTOLIC (NORMALS) IVSd 0.9 (0.6-1.2) LA Diam 2.7 (1.9-4.0) LVEF 61% LVIDd 3.6 (3.5-5.7) LVIDs 2.4 (2.0-3.5) %FS 32% LVPWd 1.0 (0.6-1.2) Ao Diam 2.1 (2.0-3.7) 2 DIMENSIONAL ASSESSMENT: RIGHT ATRIUM: NORMAL LEFT ATRIUM: NORMAL RIGHT VENTRICLE: NORMAL LEFT VENTRICLE: NORMAL TRICUSPID VALVE: NORMAL MITRAL VALVE: NORMAL PULMONIC VALVE: NORMAL AORTIC VALVE: NORMAL PERICARDIAL EFFUSION: NONE AORTIC ROOT: NORMAL LEFT VENTRICULAR WALL MOTION: NORMAL. DOPPLER/COLOR FLOW: MILD MITRAL REGURGITATION. COMMENTS: NORMAL 2D ECHO, MILD MITRAL REGURGITATION. TECHNOLOGIST: MIKEL AVENDANO
[2018-02-16] MEDS: ENOXAPARIN 40 MG/0.4 ML SQ SCH (17:00)
[2018-02-16] MEDS: levoFLOXacin 750 MG TAB PO SCH (17:00)
[2018-02-16] MEDS: AMITRIPTYLINE 10 MG TAB PO SCH (20:45)
[2018-02-17] MEDS: PIPER/TAZO/NS 4.5gm 4.5 GM/100 ML BAG IVPB SCH ×4 (00:55→17:28)
[2018-02-17] MEDS: IBUPROFEN 400 MG TAB PO PRN (00:56)
[2018-02-17] MEDS: IPRATROPIUM BROM 0.5MG/2.5ML NEB SCH ×4 (02:00→20:00)
[2018-02-17] MEDS: NACHLORIDE 0.45% 1,000 ML IV SCH ×2 (04:27→12:22)
[2018-02-17 04:29] LABS: Absolute Monocytes 1.3 K/uL (0.1-1.3); Absolute Neutrophil 13.5 K/uL (1.8-8.0); Basophils % 0.2 % (0-1.3); Eosinophils % 1.3 % (0-4.4); Hematocrit 30.4 % (36.0-45.0); Lymphocytes % 6.3 % (15.3-44.8); MCH 30.5 pg (27.0-35.0); MCV 92.8 fL (80-100); RBC Red Blood Cell Count 3.27 M/uL (3.86-4.86)
[2018-02-17 05:32] LABS: ALT/SGPT 61 U/L (12-78); AST/SGOT 47 U/L (15-37); Albumin 1.7 g/dL (3.4-5.0); Alkaline Phosphatase 189 U/L (45-117); BUN Blood Urea Nitrogen 8 mg/dL (7-18); Bicarbonate 26 mmol/L (21-32); Bilirubin Total 1.2 mg/dL (0.2-1.0); Glucose Level 94 mg/dL (74-106); Potassium 3.6 mmol/L (3.5-5.1); Protein, Total 5.4 g/dL (6.4-8.2); Sodium Level 139 mmol/L (136-145)
[2018-02-17] MEDS: VANCOMYCIN 1.25 GM in NA CHLORIDE 0.9% 250 ML IVPB SCH (05:49)
[2018-02-17] MEDS: PANTOPRAZOLE 40MG TABLET PO SCH (05:50)
[2018-02-17] MEDS: LEVOTHYROXINE SOD 0.125 MG TAB PO SCH (05:54)
[2018-02-17] MEDS ORDERED: POTASSIUM 25 MEQ EFFERV TAB PO ONE (06:30)
[2018-02-17] MEDS: ARFORMOTEROL TARTRATE 15 MCG/2 ML VIAL.NEB NEB SCH ×2 (08:00→20:00)
--- NOTE | 2018-02-17 08:16 | RAD REPORT ---
EXAM DESCRIPTION: RAD - Chest Single View - 02/17/2018 5:47 am CLINICAL HISTORY: Pneumonia Chest pain. COMPARISON: Chest Single View dated 02/16/2018; Chest Pa And Lat (2 Views) dated 02/14/2018; Chest Pa And Lat (2 Views) dated 02/13/2018; Chest Pa And Lat (2 Views) dated 02/11/2018 FINDINGS: Portable technique limits examination quality. Since 02/16/2018 study, mild improvement in right lung aeration is noted. Cavitary lesion in the righ t apex appears stable. Left lung is grossly clear. The heart is normal in size. No displaced fracture s. IMPRESSION: Mild improvement in right lung aeration since comparative study.
[2018-02-17] MEDS ORDERED: BENZONATATE 100 MG CAP PO SCH (09:00)
[2018-02-17] MEDS: HYDROCODONE/APAP 5/325 MG TAB PO PRN ×2 (09:10→16:32)
[2018-02-17] MEDS: CETIRIZINE HCL 5 MG TABLET PO SCH (09:11)
[2018-02-17] MEDS: MONTELUKAST 10 MG TAB PO SCH (09:11)
[2018-02-17] MEDS: MELOXICAM 7.5 MG TAB PO SCH (09:11)
[2018-02-17] MEDS: RANITIDINE 150 MG TABLET PO SCH (09:12)
[2018-02-17] MEDS: BENZONATATE 100 MG CAP PO PRN (09:34)
[2018-02-17] MEDS: HYDROCODONE/CHLORPHEN 5 ML/OSYR PO SCH ×2 (09:34→21:01)
[2018-02-17 11:06] LABS: HIV 1/2 Antibody Diff Not indicated.; HIV AG/AB 4TH GEN Non-reactive (Non-reactive)
--- NOTE | 2018-02-17 12:41 | P.PN ---
Subjective Date of Service: 02/17/18 Primary Care Provider: Dr. Hutton; Pulmonary-Dr. Escoto Chief Complaint: Right upper lobe pneumonia No significant change see still is coughing copious amounts of purulent sputum complaining of pain on the right side slight fever bodyaches Review of Systems General: Weakness Respiratory: Cough, Shortness of Breath Cardiovascular: Chest Pain Physical Examination - Vital Signs Temperature: 98.7 F Blood Pressure: 100/59 Pulse: 93 Respirations: 18 Pulse Ox (%): 92 - Physical Exam General: Alert, Moderate distress Respiratory: Crackles/rales (Crackles on the right side), Expiratory wheezes Cardiovascular: No edema, Regular rate/rhythm - Studies Medications List Reviewed: Yes Assessment & Plan - Problems (Diagnosis) (1) Pneumonia Onset Date: 02/16/18 Current Visit: Yes Status: Acute Plan: Patient admitted with progressive right upper lobe cavitary pneumonia AFBs negative so far cultures are also negative vital signs stable continue with Zosyn and vancomycin repeat AFB pending chest x-ray shows cavitary pneumonia in the right upper lobe Vicodin on scheduled basis Tussionex Qualifiers: Pneumonia type: due to unspecified organism Laterality: right Lung location: lower lobe of lung Qualified Code(s): J18.1 - Lobar pneumonia, unspecified organism
--- NOTE | 2018-02-17 13:14 | P.PN ---
Subjective Date of Service: 02/17/18 Primary Care Provider: Dr. Hutton; Pulmonary-Dr. Escoto Chief Complaint: Right upper lobe pneumonia Subjective: Doing well Physical Examination - Vital Signs Temperature: 98.7 F Blood Pressure: 100/59 Pulse: 93 Respirations: 18 Pulse Ox (%): 92 - Physical Exam General: Alert, In no apparent distress, Oriented x3, Cooperative HEENT: Atraumatic Neck: Supple Respiratory: Diminished (to the right side) Cardiovascular: Normal pulses, Regular rate/rhythm Gastrointestinal: Normal bowel sounds, Soft and benign, Non-distended, No tenderness, No masses, No rebound, No guarding Musculoskeletal: No erythema, No tenderness, No warmth Integumentary: No tenderness/swelling, No erythema, No warmth, No cyanosis Neurological: Normal speech, Normal strength at 5/5 x4 extr, Normal tone, Normal affect - Studies Medications List Reviewed: Yes Assessment & Plan - Problems (Diagnosis) (1) Pneumonia Onset Date: 02/16/18 Current Visit: Yes Status: Acute Plan: X-ray shows cavitary area to the right upper lung. CXR shows slight improvement. Case discussed with pulmonology. Recent stain for AFB negative. Await fungal report. Continue with isolation and IV antibiotics. Will monitor closely. Will need to rule out fungal and AFB infection. Qualifiers: Pneumonia type: due to unspecified organism Laterality: right Lung location: lower lobe of lung Qualified Code(s): J18.1 - Lobar pneumonia, unspecified organism (2) Sepsis Onset Date: 02/16/18 Current Visit: Yes Status: Acute Plan: Continue with above plan of care. (3) COPD (chronic obstructive pulmonary disease) Onset Date: 02/16/18 Current Visit: Yes Status: Chronic Plan: Continue with COPD medication. Maintain sats above 90%. Qualifiers: COPD type: chronic bronchitis Chronic bronchitis type: unspecified Qualified Code(s): J42 - Unspecified chronic bronchitis (4) Lung mass Onset Date: 02/16/18 Current Visit: Yes Status: Chronic Plan: This has been evaluated recently. Bronchoscopy pathology is not conclusive to rule out cancer. Patient with suspected right cavitary lesion to the right upper lobe. Doubt lung cancer process. Case discussed with pulmonology. (5) Tobacco abuse Onset Date: 02/16/18 Current Visit: Yes Status: Chronic Plan: Patient plans to quit smoking. Will provide nicotine patch as needed. (6) GERD (gastroesophageal reflux disease) Onset Date: 02/16/18 Current Visit: Yes Status: Chronic Plan: Will provide medication. Qualifiers: Esophagitis presence: esophagitis presence not specified Qualified Code(s) : K21.9 - Gastro-esophageal reflux disease without esophagitis (7) Hypothyroidism Onset Date: 02/16/18 Current Visit: Yes Status: Chronic Plan: Continue with medication Qualifiers: Hypothyroidism type: unspecified Qualified Code(s): E03.9 - Hypothyroidism , unspecified (8) Elevated liver function tests Onset Date: 02/16/18 Current Visit: Yes Status: Acute Plan: Etiology unknown. Hepatitis panel pending (9) Hyperbilirubinemia Onset Date: 02/16/18 Current Visit: Yes Status: Acute Plan: Continue as above. (10) Dehydration Onset Date: 02/16/18 Current Visit: Yes Status: Acute Plan: Continue with IV fluids. Will monitor closely. (11) Cavitary pneumonia Current Visit: Yes Status: Acute Plan: Continue as above (12) Hypokalemia Current Visit: Yes Status: Acute Plan: Continue to monitor and replace. Replacement protocol in place. (13) Hypomagnesemia Current Visit: Yes Status: Acute Plan: Continue to monitor and replace. Replaced in protocol in place. Discharge Plan: Home Plan to discharge in: Greater than 2 days Time Spent Managing Pts Care (In Minutes): 55
[2018-02-17] MEDS: ENOXAPARIN 40 MG/0.4 ML SQ SCH (17:28)
[2018-02-17] MEDS: VANCOMYCIN 1.5 GM in NA CHLORIDE 0.9% 500 ML IVPB SCH (18:45)
[2018-02-17] MEDS: ACETAMINOPHEN 500 MG TAB PO PRN (20:09)
[2018-02-17] MEDS: AMITRIPTYLINE 10 MG TAB PO SCH ×2 (21:00→21:01)
[2018-02-17] MEDS: ZOLPIDEM TARTRATE 10 MG TABLET PO PRN (21:02)
[2018-02-18] MEDS: PIPER/TAZO/NS 4.5gm 4.5 GM/100 ML BAG IVPB SCH ×4 (00:07→17:49)
[2018-02-18] MEDS: HYDROCODONE/APAP 5/325 MG TAB PO PRN (00:08)
[2018-02-18] MEDS: NACHLORIDE 0.45% 1,000 ML IV SCH (00:13)
[2018-02-18] MEDS: IPRATROPIUM BROM 0.5MG/2.5ML NEB SCH ×4 (02:00→20:00)
[2018-02-18] MEDS: BENZONATATE 100 MG CAP PO PRN (03:50)
[2018-02-18] MEDS: ACETAMINOPHEN 500 MG TAB PO PRN ×3 (03:51→21:12)
[2018-02-18] MEDS: VANCOMYCIN 1.5 GM in NA CHLORIDE 0.9% 500 ML IVPB SCH ×2 (04:13→17:46)
[2018-02-18 05:03] LABS: Magnesium 1.9 mg/dL (1.8-2.4); Potassium 3.6 mmol/L (3.5-5.1)
[2018-02-18] MEDS ORDERED: POTASSIUM 25 MEQ EFFERV TAB PO ONE (05:27)
[2018-02-18] MEDS: LEVOTHYROXINE SOD 0.125 MG TAB PO SCH (06:00)
[2018-02-18] MEDS: PANTOPRAZOLE 40MG TABLET PO SCH (06:00)
[2018-02-18 07:24] LABS: Absolute Lymphocytes (CBC) 1.5 K/uL (0.7-4.9); Absolute Monocytes 1.2 K/uL (0.1-1.3); Absolute Neutrophil 15.9 K/uL (1.8-8.0); Basophils % 0.4 % (0-1.3); Eosinophils % 1.4 % (0-4.4); Lymphocytes % 7.9 % (15.3-44.8); MCV 92.7 fL (80-100); MPV 9.4 fL (7.6-11.3); Monocytes % 6.6 % (3.3-12.3); RBC Red Blood Cell Count 3.56 M/uL (3.86-4.86)
[2018-02-18] MEDS: ARFORMOTEROL TARTRATE 15 MCG/2 ML VIAL.NEB NEB SCH ×2 (08:00→20:00)
--- NOTE | 2018-02-18 08:04 | RAD REPORT ---
EXAM DESCRIPTION: Abe Single View02/18/2018 6:24 am CLINICAL HISTORY: Chest pain COMPARISON: February 17, 2018 FINDINGS: The cavitary component of the right upper lobe consolidation has mildly increased in size measuring 7 centimeters. No other significant change is noted. IMPRESSION: Mild enlargement of the cavitary component of the right upper lobe consolidation
--- NOTE | 2018-02-18 08:27 | P.PN ---
Subjective Date of Service: 02/18/18 Primary Care Provider: Dr. Hutton; Pulmonary-Dr. Escoto Chief Complaint: Right upper lobe pneumonia Patient is feeling a little better today still has cough productive sputum patient is febrile Review of Systems General: Weakness Respiratory: Cough, Shortness of Breath Cardiovascular: Chest Pain Physical Examination - Vital Signs Temperature: 100.6 F Blood Pressure: 131/68 Pulse: 119 Respirations: 18 Pulse Ox (%): 96 - Physical Exam General: Alert, Oriented x3 HEENT: Atraumatic Neck: Supple Respiratory: Clear to auscultation bilaterally - Studies Medications List Reviewed: Yes Assessment & Plan - Problems (Diagnosis) (1) Pneumonia Onset Date: 02/16/18 Current Visit: Yes Status: Acute Plan: Patient has right upper lobe cavitary pneumonia patient now this has a well- developed cavity in the right upper lobe probably bacterial infection over all cultures are negative AFB as specimens are also negative very much doubt that this is tuberculosis as been a rapid progression of her consolidation into a cavity continue with Zosyn Dc E. vancomycin pro calcitonin level is declining white count is a little elevated she still has a borderline temperature patient can now ambulate chest percussion Qualifiers: Pneumonia type: due to unspecified organism Laterality: right Lung location: lower lobe of lung Qualified Code(s): J18.1 - Lobar pneumonia, unspecified organism
[2018-02-18] MEDS: CETIRIZINE HCL 5 MG TABLET PO SCH (09:51)
[2018-02-18] MEDS: MELOXICAM 7.5 MG TAB PO SCH (09:51)
[2018-02-18] MEDS: HYDROCODONE/CHLORPHEN 5 ML/OSYR PO SCH ×2 (09:51→21:11)
[2018-02-18] MEDS: MONTELUKAST 10 MG TAB PO SCH (09:52)
[2018-02-18] MEDS: RANITIDINE 150 MG TABLET PO SCH (09:52)
--- NOTE | 2018-02-18 10:30 | P.PN ---
Subjective Date of Service: 02/18/18 Primary Care Provider: Dr. Hutton; Pulmonary-Dr. Escoto Chief Complaint: Right upper lobe pneumonia Subjective: Improving Physical Examination - Vital Signs Temperature: 100.6 F Blood Pressure: 131/68 Pulse: 119 Respirations: 18 Pulse Ox (%): 96 - Physical Exam General: Alert, In no apparent distress, Oriented x3, Cooperative HEENT: Atraumatic Neck: Supple Respiratory: Diminished (To the right side but improved) Cardiovascular: Normal pulses, Regular rate/rhythm Gastrointestinal: Normal bowel sounds, Soft and benign, Non-distended, No tenderness, No masses, No rebound, No guarding Musculoskeletal: No erythema, No tenderness, No warmth Integumentary: No erythema, No warmth, No cyanosis Neurological: Normal speech, Normal strength at 5/5 x4 extr, Normal tone, Normal affect Lymphatics: No axilla or inguinal lymphadenopathy - Studies Medications List Reviewed: Yes Assessment & Plan - Problems (Diagnosis) (1) Pneumonia Onset Date: 02/16/18 Current Visit: Yes Status: Acute Plan: X-ray shows improvement. Initial analysis from recent bronchoscopy negative stains for AFB and fungal. Today culture from that bronchoscopy was positive for mold. Case discussed at length with pulmonology. Pulmonology feels the patient still has underlying bacterial infection. Overall improved. Will Dc isolation. Await the results of culture. Will repeat sputum culture. Pulmonology plans to get lab analysis for coccidiomycosis antibiotics. Continue with Zosyn. Vancomycin discontinued. Qualifiers: Pneumonia type: due to unspecified organism Laterality: right Lung location: lower lobe of lung Qualified Code(s): J18.1 - Lobar pneumonia, unspecified organism (2) Sepsis Onset Date: 02/16/18 Current Visit: Yes Status: Acute Plan: Continue with above plan of care. (3) COPD (chronic obstructive pulmonary disease) Onset Date: 02/16/18 Current Visit: Yes Status: Chronic Plan: Continue with COPD medication. Maintain sats above 90%. Qualifiers: COPD type: chronic bronchitis Chronic bronchitis type: unspecified Qualified Code(s): J42 - Unspecified chronic bronchitis (4) Lung mass Onset Date: 02/16/18 Current Visit: Yes Status: Chronic Plan: This has been evaluated recently. Bronchoscopy pathology is not conclusive to rule out cancer. Patient with suspected right cavitary lesion to the right upper lobe. Doubt lung cancer process. Infectious process likely. Case discussed with pulmonology. (5) Tobacco abuse Onset Date: 02/16/18 Current Visit: Yes Status: Chronic Plan: Patient plans to quit smoking. Will provide nicotine patch as needed. (6) GERD (gastroesophageal reflux disease) Onset Date: 02/16/18 Current Visit: Yes Status: Chronic Plan: Will provide medication. Qualifiers: Esophagitis presence: esophagitis presence not specified Qualified Code(s) : K21.9 - Gastro-esophageal reflux disease without esophagitis (7) Hypothyroidism Onset Date: 02/16/18 Current Visit: Yes Status: Chronic Plan: Continue with medication Qualifiers: Hypothyroidism type: unspecified Qualified Code(s): E03.9 - Hypothyroidism , unspecified (8) Elevated liver function tests Onset Date: 02/16/18 Current Visit: Yes Status: Acute Plan: Etiology unknown. Hepatitis panel pending (9) Hyperbilirubinemia Onset Date: 02/16/18 Current Visit: Yes Status: Acute Plan: Continue as above. (10) Dehydration Onset Date: 02/16/18 Current Visit: Yes Status: Acute Plan: Continue with IV fluids. Will monitor closely. (11) Cavitary pneumonia Current Visit: Yes Status: Acute Plan: Continue as above (12) Hypokalemia Current Visit: Yes Status: Acute Plan: Continue to monitor and replace. Replacement protocol in place. (13) Hypomagnesemia Current Visit: Yes Status: Acute Plan: Continue to monitor and replace. Replaced in protocol in place. Discharge Plan: Home Plan to discharge in: 48 Hours Time Spent Managing Pts Care (In Minutes): 55
[2018-02-18] MEDS: NA CHLORIDE 0.9% 1,000 ML IV SCH (17:06)
[2018-02-18] MEDS: NA CHLORIDE 0.9% 500 ML IV ONE ×2 (17:06→18:00)
[2018-02-18] MEDS: ENOXAPARIN 40 MG/0.4 ML SQ SCH (17:47)
--- NOTE | 2018-02-18 19:04 | CON ---
History Of Present Illness: This is a 52-year-old female with long history of tobacco usage, coming in with right upper lobe cavitary lesion which has been growing rapidly according to the lung special ist. The patient continues to have cough, fever, and discomfort to the right chest wall. The patien t was initially brought in because of dehydration and dark urine with fevers. Past Medical History: Includes heavy tobacco use for 35 years, COPD, hypothyroidism, gastroesophagea l reflux disease, allergic rhinitis, right upper lobe mass, hysterectomy, cholecystectomy. Social History: Tobacco positive. Alcohol negative. Family History: Noncontributory. Medications: Zosyn. See MARs for other medication. Allergies: MORPHINE, ASPIRIN, CODEINE, DIAZEPAM. Review of Systems: A 10-point review was performed. Physical Examination: General: This is a 52-year-old female, sitting up in bed, not in any acute cardiopulmonary distress. Vital Signs: Temperature T-max of 100.6, right now 99, pulse 96, respirations 18, blood pressure 114 /60. HEENT: Unremarkable. Neck: Supple. Lungs: Decreased breath sound on the right upper lobe area. Otherwise, no rhonchi or wheezing. Heart: S1, S2. Regular. Abdomen: Soft, nontender. Bowel sounds positive. Extremities: No edema. Laboratory Data: Shows WBC 18,900, hemoglobin 10.7, platelets are 389. Chemistry shows sodium 138, potassium 3.6, chloride 103, bicarb 25, BUN 7, creatinine 0.7, glucose 83. Albumin is 1.7. Assessment And Plan: A 52-year-old female with long history of tobacco use, coming in with right upp er lobe cavitary lesion, sputum cultures and reports are negative. Biopsy is negative on bronch for any tumor. Currently on Zosyn. We will recommend to add vancomycin for Staph coverage. We will fol low the patient closely. Thank you Dr. Smith for consult. If antibiotics did not improve, consider transferring the patient for higher care. We will follow the patient as needed. NF/MODL Voice ID: [id number] Report ID: [id number]
[2018-02-18] MEDS: AMITRIPTYLINE 10 MG TAB PO SCH (21:00)
[2018-02-18] MEDS: ZOLPIDEM TARTRATE 10 MG TABLET PO PRN (21:11)
[2018-02-19] MEDS: PIPER/TAZO/NS 4.5gm 4.5 GM/100 ML BAG IVPB SCH ×4 (00:10→19:21)
[2018-02-19] MEDS: NA CHLORIDE 0.9% 1,000 ML IV SCH (00:11)
[2018-02-19] MEDS: IPRATROPIUM BROM 0.5MG/2.5ML NEB SCH ×2 (01:03→07:29)
[2018-02-19 02:19] LABS: HBsAG Nonreactive (Nonreactive); Hepatitis A IgM Antibody Nonreactive
[2018-02-19] MEDS: VANCOMYCIN 1.5 GM in NA CHLORIDE 0.9% 500 ML IVPB SCH ×2 (04:03→17:27)
[2018-02-19 04:04] LABS: Absolute Lymphocytes (CBC) 1.9 K/uL (0.7-4.9); Absolute Neutrophil 12.2 K/uL (1.8-8.0); Basophils % 0.3 % (0-1.3); Eosinophils % 2.1 % (0-4.4); Lymphocytes % 12.5 % (15.3-44.8); MCV 92.2 fL (80-100); Monocytes % 6.2 % (3.3-12.3); RBC Red Blood Cell Count 3.14 M/uL (3.86-4.86)
[2018-02-19 04:20] LABS: Magnesium 2.1 mg/dL (1.8-2.4); Potassium 3.9 mmol/L (3.5-5.1)
[2018-02-19] MEDS: PANTOPRAZOLE 40MG TABLET PO SCH (05:24)
[2018-02-19] MEDS: ACETAMINOPHEN 500 MG TAB PO PRN (05:24)
[2018-02-19] MEDS: LEVOTHYROXINE SOD 0.125 MG TAB PO SCH (05:24)
[2018-02-19] MEDS: ARFORMOTEROL TARTRATE 15 MCG/2 ML VIAL.NEB NEB SCH ×2 (07:28→19:52)
[2018-02-19 07:37] LABS: Ferritin 628.1 ng/mL (8-388); Transferrin 85 mg/dL (200-360)
[2018-02-19] MEDS ORDERED: IPRATROPIUM BROM 0.5MG/2.5ML NEB PRN (08:24)
--- NOTE | 2018-02-19 08:25 | P.PN ---
Subjective Date of Service: 02/19/18 Primary Care Provider: Dr. Hutton; Pulmonary-Dr. Escoto Chief Complaint: Right upper lobe pneumonia Patient is feeling better still complaining all for chest pain from excessive coughing wall edema sputum is decreased fracture spikes have declined white count is declining Review of Systems General: Weakness Respiratory: Cough, Shortness of Breath Cardiovascular: Chest Pain Physical Examination - Vital Signs Temperature: 97.4 F Blood Pressure: 110/60 Pulse: 87 Respirations: 18 Pulse Ox (%): 92 - Physical Exam General: Alert, Oriented x3 HEENT: Atraumatic Neck: Supple Respiratory: Clear to auscultation bilaterally Cardiovascular: No edema - Studies Microbiology Data (last 24 hrs): 02/13/18 13:35 Blood - Blood Aerobic Blood Culture - Final No growth in 5 days. 02/13/18 13:35 Blood - Blood Anaerobic Blood Culture - Final No growth in 5 days. 02/13/18 13:20 Blood - Blood Aerobic Blood Culture - Final No growth in 5 days. 02/13/18 13:20 Blood - Blood Anaerobic Blood Culture - Final No growth in 5 days. Medications List Reviewed: Yes Assessment & Plan - Problems (Diagnosis) (1) Pneumonia Onset Date: 02/16/18 Current Visit: Yes Status: Acute Plan: Patient is doing much better still has some chest pain from coughing white count is not declining continue with Zosyn vancomycin sputum cultures still negative seen by ID Yrn IV fluids Dc Protonix ambulate Vicodin on a scheduled basis for now Qualifiers: Pneumonia type: due to unspecified organism Laterality: right Lung location: lower lobe of lung Qualified Code(s): J18.1 - Lobar pneumonia, unspecified organism
[2018-02-19] MEDS ORDERED: GUAIFENESIN 600 MG SA TAB PO SCH (09:00)
[2018-02-19] MEDS: HYDROCODONE/CHLORPHEN 5 ML/OSYR PO SCH ×2 (09:40→20:32)
[2018-02-19] MEDS: CETIRIZINE HCL 5 MG TABLET PO SCH (09:40)
[2018-02-19] MEDS: HYDROCODONE/APAP 5/325 MG TAB PO SCH ×2 (09:41→17:27)
--- NOTE | 2018-02-19 13:38 | P.PN ---
Subjective Date of Service: 02/19/18 Primary Care Provider: Dr. Hutton; Pulmonary-Dr. Escoto Chief Complaint: Right upper lobe pneumonia Subjective: Improving Physical Examination - Vital Signs Temperature: 97 F Blood Pressure: 116/67 Pulse: 103 Respirations: 18 Pulse Ox (%): 92 - Physical Exam General: Alert, In no apparent distress, Oriented x3, Cooperative HEENT: Atraumatic Neck: Supple Respiratory: Clear to auscultation bilaterally (Better air movement bilateral) Cardiovascular: Normal pulses, Regular rate/rhythm Gastrointestinal: Normal bowel sounds, Soft and benign, Non-distended, No tenderness, No masses, No rebound, No guarding Musculoskeletal: No erythema, No tenderness, No warmth Integumentary: No tenderness/swelling, No erythema, No warmth, No cyanosis Neurological: Normal speech, Normal strength at 5/5 x4 extr, Normal tone, Normal affect - Studies Microbiology Data (last 24 hrs): 02/13/18 13:35 Blood - Blood Aerobic Blood Culture - Final No growth in 5 days. 02/13/18 13:35 Blood - Blood Anaerobic Blood Culture - Final No growth in 5 days. 02/13/18 13:20 Blood - Blood Aerobic Blood Culture - Final No growth in 5 days. 02/13/18 13:20 Blood - Blood Anaerobic Blood Culture - Final No growth in 5 days. Medications List Reviewed: Yes Assessment & Plan - Problems (Diagnosis) (1) Pneumonia Onset Date: 02/16/18 Current Visit: Yes Status: Acute Plan: Patient clinically improved. Awaiting final analysis from cultures from recent bronchoscopy. Case discussed at length with pulmonology. Will continue with antibiotic therapy. Pulmonology plans to do a special sputum culture to be sent out for genetic testing for bacteria and fungus. Anticipate discharge home in the next 1-2 days. Encourage ambulation. Will provide medication for congestion. Qualifiers: Pneumonia type: due to unspecified organism Laterality: right Lung location: lower lobe of lung Qualified Code(s): J18.1 - Lobar pneumonia, unspecified organism (2) Sepsis Onset Date: 02/16/18 Current Visit: Yes Status: Acute Plan: Continue with above plan of care. (3) COPD (chronic obstructive pulmonary disease) Onset Date: 02/16/18 Current Visit: Yes Status: Chronic Plan: Continue with COPD medication. Maintain sats above 90%. Qualifiers: COPD type: chronic bronchitis Chronic bronchitis type: unspecified Qualified Code(s): J42 - Unspecified chronic bronchitis (4) Lung mass Onset Date: 02/16/18 Current Visit: Yes Status: Chronic Plan: This has been evaluated recently. Bronchoscopy pathology is not conclusive to rule out cancer. Patient with suspected right cavitary lesion to the right upper lobe. Doubt lung cancer process. Infectious process likely. Case discussed with pulmonology. Continue as above (5) Tobacco abuse Onset Date: 02/16/18 Current Visit: Yes Status: Chronic Plan: Patient plans to quit smoking. Will provide nicotine patch as needed. (6) GERD (gastroesophageal reflux disease) Onset Date: 02/16/18 Current Visit: Yes Status: Chronic Plan: Will continue with medication Qualifiers: Esophagitis presence: esophagitis presence not specified Qualified Code(s) : K21.9 - Gastro-esophageal reflux disease without esophagitis (7) Hypothyroidism Onset Date: 02/16/18 Current Visit: Yes Status: Chronic Plan: Continue with medication Qualifiers: Hypothyroidism type: unspecified Qualified Code(s): E03.9 - Hypothyroidism , unspecified (8) Elevated liver function tests Onset Date: 02/16/18 Current Visit: Yes Status: Acute Plan: Etiology unknown. Hepatitis panel pending (9) Hyperbilirubinemia Onset Date: 02/16/18 Current Visit: Yes Status: Acute Plan: Continue as above. (10) Dehydration Onset Date: 02/16/18 Current Visit: Yes Status: Acute Plan: Continue with IV fluids. Will monitor closely. (11) Cavitary pneumonia Current Visit: Yes Status: Acute Plan: Continue as above (12) Hypokalemia Current Visit: Yes Status: Acute Plan: Continue to monitor and replace. Replacement protocol in place. (13) Hypomagnesemia Current Visit: Yes Status: Acute Plan: Continue to monitor and replace. Replaced in protocol in place. Discharge Plan: Home Plan to discharge in: 48 Hours Time Spent Managing Pts Care (In Minutes): 55
[2018-02-19] MEDS ORDERED: POTASSIUM 25 MEQ EFFERV TAB PO ONE (16:00)
[2018-02-19] MEDS: ENOXAPARIN 40 MG/0.4 ML SQ SCH (17:27)
[2018-02-19] MEDS: ALPRAZOLAM 0.5 MG TABLET PO PRN (20:34)
[2018-02-20] MEDS: PIPER/TAZO/NS 4.5gm 4.5 GM/100 ML BAG IVPB SCH ×5 (00:05→23:34)
[2018-02-20] MEDS: HYDROCODONE/APAP 5/325 MG TAB PO SCH ×3 (00:05→17:09)
[2018-02-20] MEDS: ZOLPIDEM TARTRATE 10 MG TABLET PO PRN (00:07)
[2018-02-20] MEDS: HYDROCODONE/APAP 5/325 MG TAB PO PRN ×2 (05:02→20:25)
[2018-02-20] MEDS: VANCOMYCIN 1.5 GM in NA CHLORIDE 0.9% 500 ML IVPB SCH ×2 (05:03→17:09)
[2018-02-20] MEDS: LEVOTHYROXINE SOD 0.125 MG TAB PO SCH (05:04)
[2018-02-20 05:48] LABS: Absolute Monocytes 0.8 K/uL (0.1-1.3); Absolute Neutrophil 10.7 K/uL (1.8-8.0); Basophils % 0.4 % (0-1.3); Hematocrit 34.8 % (36.0-45.0); Lymphocytes % 14.3 % (15.3-44.8); MCH 30.6 pg (27.0-35.0); MCV 93.5 fL (80-100); MPV 9.3 fL (7.6-11.3); Monocytes % 5.4 % (3.3-12.3); RBC Red Blood Cell Count 3.72 M/uL (3.86-4.86)
[2018-02-20 06:08] LABS: Magnesium 2.3 mg/dL (1.8-2.4); Potassium 3.5 mmol/L (3.5-5.1)
[2018-02-20] MEDS ORDERED: POTASSIUM CL SA 10 MEQ TAB PO ONE (06:16)
[2018-02-20] MEDS: ARFORMOTEROL TARTRATE 15 MCG/2 ML VIAL.NEB NEB SCH ×2 (08:00→20:00)
--- NOTE | 2018-02-20 09:19 | RAD REPORT ---
EXAM DESCRIPTION: RAD - Chest Single View - 02/20/2018 6:30 am CLINICAL HISTORY: Pneumonia followup Chest pain. COMPARISON: Chest Single View dated 02/18/2018; Chest Single View dated 02/17/2018; Chest Single View dated 02/16/2018; Chest Pa And Lat (2 Views) dated 02/14/2018 FINDINGS: Portable technique limits examination quality. Cavitary lesion in the right apex with surrounding lung consolidation is again noted. The findings ap pear stable since the comparative study. The heart is normal in size. No displaced fractures. IMPRESSION: Stable chest since 02/18/2018.
[2018-02-20] MEDS: HYDROCODONE/CHLORPHEN 5 ML/OSYR PO SCH ×2 (09:20→20:24)
[2018-02-20] MEDS: CETIRIZINE HCL 5 MG TABLET PO SCH (09:20)
--- NOTE | 2018-02-20 10:57 | P.PN ---
Subjective Date of Service: 02/20/18 Primary Care Provider: Dr. Hutton; Pulmonary-Dr. Escoto Chief Complaint: Right upper lobe pneumonia Subjective: Improving (Patient is slowly improving daily. Still with increased phlegm production. Cough improved. Patient with mild fever this morning.) Physical Examination - Vital Signs Temperature: 97.7 F Blood Pressure: 137/67 Pulse: 95 Respirations: 16 Pulse Ox (%): 94 - Physical Exam General: Alert, In no apparent distress, Oriented x3, Cooperative HEENT: Atraumatic Neck: Supple Respiratory: Other (Better air movement bilateral) Cardiovascular: Normal pulses, Regular rate/rhythm Gastrointestinal: Normal bowel sounds, Soft and benign, Non-distended, No tenderness, No masses, No rebound, No guarding Musculoskeletal: No erythema, No tenderness, No warmth Integumentary: No tenderness/swelling, No erythema, No warmth, No cyanosis Neurological: Normal speech, Normal strength at 5/5 x4 extr, Normal tone, Normal affect - Studies Medications List Reviewed: Yes Assessment & Plan - Problems (Diagnosis) (1) Pneumonia Onset Date: 02/16/18 Current Visit: Yes Status: Acute Plan: Patient clinically improved. Awaiting final analysis from cultures from recent bronchoscopy. Case discussed at length with pulmonology yesterday. Will continue with antibiotic therapy. Pulmonology obtained special sputum culture for genetic testing for bacteria and fungus. Will discuss with pulmonology and Infectious Disease about plan of care and possible discharge in the next 2-3 days. Encourage ambulation. Qualifiers: Pneumonia type: due to unspecified organism Laterality: right Lung location: lower lobe of lung Qualified Code(s): J18.1 - Lobar pneumonia, unspecified organism (2) Sepsis Onset Date: 02/16/18 Current Visit: Yes Status: Resolved Plan: Continue with above plan of care. (3) COPD (chronic obstructive pulmonary disease) Onset Date: 02/16/18 Current Visit: Yes Status: Chronic Plan: Continue with COPD medication. Maintain sats above 90%. Qualifiers: COPD type: chronic bronchitis Chronic bronchitis type: unspecified Qualified Code(s): J42 - Unspecified chronic bronchitis (4) Lung mass Onset Date: 02/16/18 Current Visit: Yes Status: Chronic Plan: This has been evaluated recently. Bronchoscopy pathology is not conclusive to rule out cancer. Patient with suspected right cavitary lesion to the right upper lobe. Doubt lung cancer process. Infectious process likely. Case discussed with pulmonology. Continue as above (5) Tobacco abuse Onset Date: 02/16/18 Current Visit: Yes Status: Chronic Plan: Patient plans to quit smoking. Will provide nicotine patch as needed. (6) GERD (gastroesophageal reflux disease) Onset Date: 02/16/18 Current Visit: Yes Status: Chronic Plan: Will continue with medication Qualifiers: Esophagitis presence: esophagitis presence not specified Qualified Code(s) : K21.9 - Gastro-esophageal reflux disease without esophagitis (7) Hypothyroidism Onset Date: 02/16/18 Current Visit: Yes Status: Chronic Plan: Continue with medication Qualifiers: Hypothyroidism type: unspecified Qualified Code(s): E03.9 - Hypothyroidism , unspecified (8) Elevated liver function tests Onset Date: 02/16/18 Current Visit: Yes Status: Acute Plan: Etiology unknown. Hepatitis panel and HIV screen negative (9) Hyperbilirubinemia Onset Date: 02/16/18 Current Visit: Yes Status: Acute Plan: Continue as above. (10) Dehydration Onset Date: 02/16/18 Current Visit: Yes Status: Acute Plan: Encourage oral intake (11) Cavitary pneumonia Current Visit: Yes Status: Acute Plan: Continue as above (12) Hypokalemia Current Visit: Yes Status: Acute Plan: Continue to monitor and replace. Replacement protocol in place. (13) Hypomagnesemia Current Visit: Yes Status: Acute Plan: Continue to monitor and replace. Replaced in protocol in place. Discharge Plan: Home Plan to discharge in: 72 Hours Time Spent Managing Pts Care (In Minutes): 55
[2018-02-20] MEDS: ENOXAPARIN 40 MG/0.4 ML SQ SCH (17:09)
[2018-02-20] MEDS: ALPRAZOLAM 0.5 MG TABLET PO PRN (20:24)
[2018-02-21] MEDS: HYDROCODONE/APAP 5/325 MG TAB PO SCH (00:56)
[2018-02-21 05:03] LABS: Absolute Lymphocytes (CBC) 1.9 K/uL (0.7-4.9); Absolute Monocytes 0.8 K/uL (0.1-1.3); Absolute Neutrophil 7.7 K/uL (1.8-8.0); Basophils % 0.5 % (0-1.3); Eosinophils % 4.6 % (0-4.4); Hematocrit 31.7 % (36.0-45.0); Lymphocytes % 17.4 % (15.3-44.8); MCH 31.3 pg (27.0-35.0); MCV 92.6 fL (80-100); MPV 8.7 fL (7.6-11.3); Monocytes % 7.2 % (3.3-12.3); RBC Red Blood Cell Count 3.43 M/uL (3.86-4.86)
[2018-02-21 05:08] LABS: Magnesium 2.4 mg/dL (1.8-2.4); Potassium 4.1 mmol/L (3.5-5.1)
[2018-02-21] MEDS: PIPER/TAZO/NS 4.5gm 4.5 GM/100 ML BAG IVPB SCH (05:16)
[2018-02-21] MEDS: VANCOMYCIN 1.5 GM in NA CHLORIDE 0.9% 500 ML IVPB SCH (05:17)
[2018-02-21] MEDS: LEVOTHYROXINE SOD 0.125 MG TAB PO SCH (05:23)
[2018-02-21] MEDS: ARFORMOTEROL TARTRATE 15 MCG/2 ML VIAL.NEB NEB SCH (08:00)
[2018-02-21 08:18] VITALS: O2SAT 98
[2018-02-21] MEDS: CETIRIZINE HCL 5 MG TABLET PO SCH (08:31)
[2018-02-21] MEDS: HYDROCODONE/CHLORPHEN 5 ML/OSYR PO SCH (08:31)
[2018-02-21 09:10] VITALS: BP 113/70; TEMP 97.8
--- NOTE | 2018-02-21 09:18 | P.DS ---
Admission Date: 02/13/18 Discharge Date: 02/21/18 Primary Care Provider: Dr. Hutton; Pulmonary-Dr. Escoto Disposition: ROUTINE DISCHARGE Discharge Condition: GOOD Reason for Admission: Right upper lobe pneumonia Consultations: Pulmonary-Dr. Escoto ID-Dr. Jackson Procedures: CT Scan: COMPARISON: Thorax W/ Con dated 01/16/2018; Abdomen Exam Complete dated 2017; Chest Single View dated 02/16/2018 FINDINGS: Significant airspace consolidation is seen involving the right middle lobe and posterior aspect of the right upper lobe. The findings are significantly progressive since 01/16/2018. A large cavitary component is seen in the right upper lobe measuring 4 x 6 cm. Small right pleural effusion. No pneumothorax. Small hiatal hernia. Enlarged adenopathy is present in the right hilar station measuring 2.6 x 2.1 cm , precarinal and pretracheal stations measuring 2.2 x 1.1 cm and 1.5 x 1.6 cm respectively. No concerning bony finding. No gross upper abdominal finding. All CT scans are performed using dose optimization technique as appropriate and may include automated exposure control or mA/KV adjustment according to patient size. IMPRESSION: Significant progression in right upper lobe and right middle lobe airspace consolidation with large cavitary component in the right upper lobe. Given the rapid progression, infection is the most likely etiology including the possibility of tuberculosis, fungal or cavitary pneumonia. ABUS: Unremarkable. ECHO: Normal ejection fraction. - Problems (1) Pneumonia Onset Date: 02/16/18 Current Visit: Yes Status: Acute Qualifiers: Pneumonia type: due to unspecified organism Laterality: right Lung location: lower lobe of lung Qualified Code(s): J18.1 - Lobar pneumonia, unspecified organism (2) Sepsis Onset Date: 02/16/18 Current Visit: Yes Status: Resolved (3) COPD (chronic obstructive pulmonary disease) Onset Date: 02/16/18 Current Visit: Yes Status: Chronic Qualifiers: COPD type: chronic bronchitis Chronic bronchitis type: unspecified Qualified Code(s): J42 - Unspecified chronic bronchitis (4) Lung mass Onset Date: 02/16/18 Current Visit: Yes Status: Chronic (5) Tobacco abuse Onset Date: 02/16/18 Current Visit: Yes Status: Chronic (6) GERD (gastroesophageal reflux disease) Onset Date: 02/16/18 Current Visit: Yes Status: Chronic Qualifiers: Esophagitis presence: esophagitis presence not specified Qualified Code(s) : K21.9 - Gastro-esophageal reflux disease without esophagitis (7) Hypothyroidism Onset Date: 02/16/18 Current Visit: Yes Status: Chronic Qualifiers: Hypothyroidism type: unspecified Qualified Code(s): E03.9 - Hypothyroidism , unspecified (8) Elevated liver function tests Onset Date: 02/16/18 Current Visit: Yes Status: Acute (9) Hyperbilirubinemia Onset Date: 02/16/18 Current Visit: Yes Status: Acute (10) Dehydration Onset Date: 02/16/18 Current Visit: Yes Status: Acute (11) Cavitary pneumonia Current Visit: Yes Status: Acute (12) Hypokalemia Current Visit: Yes Status: Acute (13) Hypomagnesemia Current Visit: Yes Status: Acute (14) Anemia Current Visit: Yes Status: Acute Qualifiers: Anemia type: iron deficiency Iron deficiency anemia type: unspecified iron deficiency Qualified Code(s): D50.9 - Iron deficiency anemia, unspecified Brief History of Present Illness: 52-year-old female presented emergency room with increasing cough, fever and shortness of breath. Patient reports that she has been having increasing cough, shortness of breath and fever over the last several days. 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 She had been placed on Augmentin for suspected upper respiratory infection. The patient has seen pulmonology for a right upper lobe mass. Patient recently had a bronchoscopy done. Patient is to have a CT- guided needle biopsy to further evaluate the lung mass. From what she mentions , pathology was not conclusive to rule out cancer. She has reported increasing cough with sputum. Mild blood production noted. Patient reports fever as high as 102. She has been having headaches, shortness of breath and weakness. She has been reporting some dysuria. Indigestion also noted. In the ER patient was evaluated. Blood pressure is slightly decreased. Patient given IV fluids. Her oxygen level remained stable. In the ER white count elevated at 17.8, sodium 137, potassium 3.3, BUN of 16, creatinine 0.9. Urine was positive for UTI. Chest x-ray showed worsening right opacity. Right upper lung mass unchanged. Total bilirubin was elevated at 1.3, direct bilirubin 6.6, AST 69, ALT 79, alk-phos 119. Pro calcitonin was elevated at 0.71. Patient was admitted for treatment. When I evaluated the patient the ER, she appeared comfortable. She did not appear in any respiratory distress Patient reports a history of tobacco abuse but plans to quit. Patient also reports a history of hypothyroidism. Right upper lobe mass has been recently evaluated. There is a family history of small cell lung cancer. Hospital Course: During the course of her stay she was seen and evaluated by Pulmonary. She was started on IV antibiotics as sepsis was suspected. Blood and multiple sputum cultures were obtained to rule out bacteria, fungal and TB. Previous bronchoscopy results showed no evidence of cancer. Bronchoscopy stains showed no TB or fungal. Bronchoscopy culture was positive for mold but this was not a final result. Pulmonary obtained special genetic testing for bacteria, fungal identification. CT scan showed progression in the right upper lobe and middle lobe airspace consolidation with large cavitary component in the right upper lobe. This rapid progression likely indicates infectious cause rather than cancer. She progress slowly. Infectious disease was also consulted. At discharge she was off oxygen. Cough and congestion has improved. At discharge she will continue with Levaquin 500 mg daily and Clindamycin 300 mg three times a day for 10 days. She will need to follow up with Pulmonary within one week to go over recent collection of sputum and previous sputum. She will be given cough medication and medication for congestion. Recommendation is to recheck CXR in 2-4 weeks to monitor her progression. Patient likely with GERD. She will continue with Protonix 40 mg daily. She may benefit with GI evaluation in the future. Patient likely with COPD. She will be sent home with Symbicort 1 puff twice daily and Proair HFA 2 puffs three times a day as needed for SOB. She will follow up with Pulmonary as directed. Tobacco cessation addressed. She will be provided with Nicotine patch at discharge. Patient has Allergic rhinitis. She may continue with medication of Zyrtec and Singulair. Iron deficiency was identified. At discharge she will continue with Iron daily. Recommendation for repeat Lab-CBC in 2-4 weeks to monitor her progress. GI evaluation in the future may be required. Patient with hypothyroidism. She will continue with her medication. Recommendation on no work until she is cleared by Pulmonary. She may have to limit activities. Vital Signs/Physical Exam: Temp Pulse Resp BP Pulse Ox 97.8 F 98 H 16 113/70 98 06/30/18 08:00 06/30/18 08:00 02/21/18 08:00 02/21/18 08:00 02/21/18 08:00 General: Alert, In no apparent distress, Oriented x3, Cooperative HEENT: Atraumatic Neck: Supple Respiratory: Clear to auscultation bilaterally, Normal air movement Cardiovascular: Normal pulses, Regular rate/rhythm Gastrointestinal: Normal bowel sounds, Soft and benign, Non-distended, No tenderness, No masses, No rebound, No guarding Musculoskeletal: No erythema, No tenderness, No warmth Integumentary: No tenderness/swelling, No erythema, No warmth, No cyanosis Neurological: Normal speech, Normal strength at 5/5 x4 extr, Normal tone, Normal affect Laboratory Data at Discharge: WBC 11.0 K/uL (4.3-10.9) H D 02/21/18 04:15 Hgb 10.7 g/dL (12.0-15.0) L 02/21/18 04:15 Hct 31.7 % (36.0-45.0) L 02/21/18 04:15 Plt Count 439 K/uL (152-406) H 02/21/18 04:15 Sodium 143 mmol/L (136-145) 02/21/18 04:15 Potassium 4.1 mmol/L (3.5-5.1) 02/21/18 04:15 BUN 6 mg/dL (7-18) L 02/21/18 04:15 Creatinine 0.70 mg/dL (0.55-1.3) 02/21/18 04:15 Glucose 84 mg/dL (74-106) 02/21/18 04:15 Magnesium 2.4 mg/dL (1.8-2.4) 02/21/18 04:15 Total Bilirubin 1.2 mg/dL (0.2-1.0) H 02/17/18 03:39 AST 47 U/L (15-37) H 02/17/18 03:39 ALT 61 U/L (12-78) 02/17/18 03:39 Alkaline Phosphatase 189 U/L (45-117) H 02/17/18 03:39 Lipase 86 U/L (73-393) 02/13/18 13:20 Home Medications: Amitriptyline [Elavil*] 10 mg PO BEDTIME 02/05/18 Cetirizine HCl [Zyrtec] 10 mg PO DAILY 02/05/18 Levothyroxine [Synthroid*] 125 mcg PO [id number] 02/05/18 Montelukast [Singulair*] 10 mg PO DAILY 02/05/18 ALPRAZolam [Xanax*] 0.5 mg PO TID PRN 02/13/18 Hydrocodone Bit/Acetaminophen [[place] 10-325 Tablet] 1 tab PO Q6H PRN 02/13/18 Albuterol Sulfate [Proair Hfa] 8.5 gm IH TID PRN #1 hfa.aer.ad 02/21/18 Budesonide/Formoterol Fumarate [Symbicort 160-4.5 Mcg Inhaler] 2 puff IH BID #1 hfa.aer.ad 02/21/18 Clindamycin HCl 300 mg PO TID #30 capsule 02/21/18 Ferrous Sulfate [Iron] 325 mg PO DAILY #30 tablet 02/21/18 Guaifenesin [Mucinex] 1,200 mg PO BID #30 tbmp.12hr 02/21/18 Hydrocodone/Chlorphen Polis [Tussionex Oral Susp*] 5 ml PO BID #1 osyr 02/21/18 Levofloxacin [Levaquin] 500 mg PO DAILY #10 tablet 02/21/18 Nicotine [Nicoderm Cq] 1 each TD DAILY #30 patch.td24 02/21/18 Pantoprazole [Protonix Tab] 40 mg PO DAILY #30 tab 02/21/18 levoFLOXacin [Levaquin] 500 mg PO DAILY #10 tab 02/21/18 New Medications: Albuterol Sulfate [Proair Hfa] 8.5 gm IH TID PRN #1 hfa.aer.ad PRN Reason: Shortness Of Breath Budesonide/Formoterol Fumarate [Symbicort 160-4.5 Mcg Inhaler] 2 puff IH BID #1 hfa.aer.ad Clindamycin HCl 300 mg PO TID #30 capsule Ferrous Sulfate [Iron] 325 mg PO DAILY #30 tablet Guaifenesin [Mucinex] 1,200 mg PO BID #30 tbmp.12hr Hydrocodone/Chlorphen Polis [Tussionex Oral Susp*] 5 ml PO BID #1 osyr levoFLOXacin [Levaquin] 500 mg PO DAILY #10 tab Levofloxacin [Levaquin] 500 mg PO DAILY #10 tablet Nicotine [Nicoderm Cq] 1 each TD DAILY #30 patch.td24 Pantoprazole [Protonix Tab] 40 mg PO DAILY #30 tab Patient Discharge Instructions: 1. Patient will need to follow up with PCP in one week to follow up this hospitalization. 2. Patient presented with SOB, cough. Patient was seen and evaluated by Pulmonary. Previous bronchoscopy results showed no evidence of cancer. Bronchoscopy stains showed no TB or fungal. Bronchoscopy culture was positive for mold but this was not a final result. Pulmonary obtained special genetic testing for bacteria, fungal identification. CT scan showed progression in the right upper lobe and middle lobe airspace consolidation with large cavitary component in the right upper lobe. This rapid progression likely indicates infectious cause rather than cancer. She progress slowly with improvement. At discharge she will continue with Levaquin 500 mg daily and Clindamycin 300 mg three times a day for 10 days. She will need to follow up with Pulmonary within one week to go over recent collection of sputum and previous sputum. She will be given cough medication and medication for congestion. Recommendation is to recheck CXR in 2 -4 weeks to monitor her progression. 3. Patient likely with GERD. Zantac has been discontinued. She will continue with Protonix 40 mg daily. She may benefit with GI evaluation in the future. 4. Patient likely with COPD. She will be sent home with Symbicort 1 puff twice daily and Proair HFA 2 puffs three times a day as needed for SOB. She will follow up with Pulmonary as directed. 5. Iron deficiency was identified. At discharge she will continue with Iron daily. Recommendation for repeat Lab-CBC in 2-4 weeks to monitor her progress. GI evaluation in the future may be required. 6. Tobacco cessation addressed. Nicotine patch provided at discharge. 7. Patient with hypothyroidism. She will continue with her medication. 8. Patient has Allergic rhinitis. She may continue with Zyrtec and Singular. 9. Recommendation on no work until she is cleared by Pulmonary. She may have to limit activities. Diet: AHA Activity: Ad crystal Time spent managing pt's care (in minutes): 55
--- NOTE | 2018-02-23 10:12 | PN ---
Subjective: The patient is lying in bed, continuing to have cough and yellowish thick sputum. The p atient denies any other problems at this time. No fevers. Objective: Vital Signs: Temperature 98, pulse 95, respirations 16, blood pressure 130/60. Lungs: Crackles on the right upper lobe, otherwise no wheezing, no rhonchi. Heart: S1, S2. Regular. Abdomen: Soft, nontender. Bowel sounds positive. Extremity: No edema. Laboratory Data: WBC 13.9, hemoglobin 11.4, platelets 426. Current Medication: Include Zosyn and vancomycin. Diagnostic Imaging: Chest x-ray done today showing stable since 02/18, cavitary lesion still noted o n the right apex with surrounding lung consolidation is again noted. Assessment And Plan: Right upper lobe pneumonitis with cavitary lesion. Continue vancomycin and Zos yn. We will follow the patient closely. NF/MODL Voice ID: [id number] Report ID: [id number]
== END 2018-02-21 12:31 | disposition home or self-care (01) | DRG 871 ==
LOC: ER 11:54 → ERHOLD 14:46 → 2ND 17:24 → 4TH 02-15 10:43 → 2ND 02-19 18:00
PROVIDERS: ADMIT Family Medicine; ATTEND Family Medicine
DX: A41.9 Sepsis, unspecified organism (principal); J18.9 Pneumonia, unspecified organism; N39.0 Urinary tract infection, site not specified; J44.9 Chronic obstructive pulmonary disease, unspecified; E03.9 Hypothyroidism, unspecified; K21.9 Gastro-esophageal reflux disease without esophagitis; J30.9 Allergic rhinitis, unspecified; R91.8 Other nonspecific abnormal finding of lung field; E86.0 Dehydration; F41.9 Anxiety disorder, unspecified; E83.42 Hypomagnesemia; E87.6 Hypokalemia; Z28.21 Immunization not carried out because of patient refusal
CPT/HCPCS: 36415; 71045; 71046; 71250; 76700; 80048; 80053; 80074; 80076; 80202; 81003; 81015; 81025; 82607; 82728; 83540; 83605; 83690; 83735; 84132; 84145; 84439; 84443; 84466; 85025; 86021; 87015; 87040; 87070; 87086; 87088; 87116; 87205; 87206; 87389; 87804; 93306; 94640; 94667; 94668; 96361; 96374; 99284; J0696; J1650; J2405; J3475; J7030; J7605

== ENCOUNTER 2025-06-13 12:16 | Emergency (ER) | payer BC ==
[2025-06-13 14:04] LABS: Absolute Lymphocytes (CBC) 1.0 K/uL (0.7-4.9); Hematocrit 44.3 % (36.0-45.0); Hemoglobin 15.0 g/dL (12.0-15.0); MCH 32.2 pg (27.0-35.0); MCHC 33.7 g/dL (32.0-36.0); MCV 95.6 fL (80-100); MPV 8.6 fL (7.6-11.3); Nucleated RBC Absolute Count 0.0 (0-0); Nucleated Red Blood Cells % 0.1 % (0-0); RBC Red Blood Cell Count 4.64 M/uL (3.86-4.86); White Blood Count 8.10 thou/uL (4.3-10.9)
[2025-06-13] MEDS ORDERED: ONDANSETRON 4 MG/2 ML VIAL ONE (14:10)
[2025-06-13] MEDS ORDERED: NA CHLORIDE 0.9% 1,000 ML ONE (14:11)
[2025-06-13 14:23] LABS: ALT/SGPT 20.0 U/L (13-56); AST/SGOT 19.0 U/L (15-37); Albumin 3.5 g/dL (3.4-5.0); Albumin/Globulin Ratio 1.0 (1.1-1.8); Alkaline Phosphatase 75.0 U/L (45-117); Anion Gap 7.8 mEq/L (5.0-15.0); BUN Blood Urea Nitrogen 11.0 mg/dL (7-18); Globulin 3.5 g/dL (2.3-3.5); Glucose Level 94.0 mg/dL (74-106); Lipase 18.0 U/L (13-75); Potassium 3.8 mEq/L (3.5-5.1)
--- NOTE | 2025-06-13 16:19 | RAD REPORT ---
EXAMINATION: Abdomen Pelvis W Contrast CLINICAL INDICATION: Female, 59 years old.ABD PAIN TECHNIQUE: CT abdomen and pelvis was performed, after the administration of IV contrast, as per depar replaced by [facility] protocol. Axial, sagittal and coronal reconstructions were obtained. One or more of the following dose reduction techniques were used: Automated exposure control, adjustment of the mA and/o r kV according to patient size, and/or iterative reconstruction. Unless otherwise specified, incidental findings do not require dedicated imaging follow-up. [id number]. COMPARISON: No prior exams FINDINGS: LOWER CHEST: No acute process identified. No significant pericardial effusion. Small hiatal hernia wi th circumferential thickening of the esophagus which could reflect esophagitis. UPPER GI: No significant abnormality. LIVER: No significant focal abnormality. GALLBLADDER/BILE DUCTS: Cholecystectomy.? PANCREAS: No mass, ductal dilation, or titi-pancreatic fluid. SPLEEN: Unremarkable. ADRENALS: Adrenal thickening without discrete mass. KIDNEYS AND URETERS: No hydronephrosis. Low density and/or too small to characterize renal lesions wh ich are statistically benign. No renal calculi. No ureteral calculi. ABDOMINAL AORTA AND OTHER VESSELS: Moderate atherosclerotic changes without aortic aneurysm. PERITONEUM: No abnormal free fluid. No free air. LYMPH NODES: No pathologic lymphadenopathy. ABDOMINAL WALL: Unremarkable SMALL BOWEL/COLON: Small bowel has normal course and caliber. No colonic wall thickening or pericolon ic inflammatory changes. Normal appendix. URINARY BLADDER: Underdistended but grossly unremarkable. REPRODUCTIVE ORGANS: No pathologic process. MUSCULOSKELETAL: No acute or suspicious osseous abnormality. ADDITIONAL FINDINGS: None. IMPRESSION: No acute findings within the abdomen or pelvis. Incidental findings as noted above.
--- NOTE | 2025-06-13 16:50 | EDPHYS ---
Physician Documentation [facility] Name: Roberta Villagomez Age: 59 yrs Sex: Female : 1965 Arrival Date: 06/13/2025 Time: 12:16 Bed 13 Private MD: ED Physician Christopher Soliman HPI: 06/13 18:55 This 59 yrs old Female presents to ER via Ambulatory with complaints of dr5 Nausea/Vomiting, General Weakness. 18:55 The patient presents to the emergency department with nausea, vomiting, diarrhea. dr5 Onset: The symptoms/episode began/occurred acutely. Patient is a 59-year-old female with history of brain cancer and Graves' disease in remission coming in with generalized abdominal discomfort with possible bloody stools. Patient reports that she does have a history of hemorrhoids. Patient denies nausea or vomiting, chest pain, shortness of breath.. Historical: - Allergies: 13:06 Aspirin; dd2 13:06 Blue Dye; dd2 13:06 Codeine; dd2 13:06 EXCEDRIN; dd2 13:06 larg quantities of codeine; dd2 13:06 Morphine; dd2 13:06 GABAPENTIN; dd2 - PMHx: 13:06 CA-brain nd lung; HERNIA (CA-brain nd lung); GRAVES (CA-brain nd lung); Depressive dd2 disorder; Chronic obstructive lung disease; - PSHx: 13:06 top of lung removed -Lung CA; Total abdominal hysterectomy; Cholecystectomy; dd2 - Immunization history:: Adult Immunizations unknown. - Infectious Disease History:: Denies. - Social history:: Smoking status: Patient reports the use of cigarette tobacco products, smokes one pack cigarettes per day. ROS: 18:55 Constitutional: as per hpi dr5 Exam: 18:55 Constitutional: This is a well developed, well nourished patient who is awake, alert, dr5 and in no acute distress. Head/Face: Normocephalic, atraumatic. Eyes: Pupils equal round and reactive to light, extra-ocular motions intact. Lids and lashes normal. Conjunctiva and sclera are non-icteric and not injected. Cornea within normal limits. Periorbital areas with no swelling, redness, or edema. Neck: Trachea midline, no thyromegaly or masses palpated, and no cervical lymphadenopathy. Supple, full range of motion without nuchal rigidity, or vertebral point tenderness. No Meningismus. Chest/axilla: Normal chest wall appearance and motion. Nontender with no deformity. No lesions are appreciated. Cardiovascular: Regular rate and rhythm with a normal S1 and S2. Normal PMI, no JVD. No pulse deficits. Respiratory: Lungs have equal breath sounds bilaterally, clear to auscultation. No rales, rhonchi or wheezes noted. No increased work of breathing, no retractions or nasal flaring. Back: No spinal tenderness. No costovertebral tenderness. Full range of motion. Skin: Warm, dry with normal turgor. Normal color with no rashes, no lesions, and no evidence of cellulitis. MS/ Extremity: Pulses equal, no cyanosis. Neurovascular intact. Full, normal range of motion. Neuro: Awake and alert, GCS 15, oriented to person, place, time, and situation. Cranial nerves II-XII grossly intact. Motor strength 5/5 in all extremities. Sensory grossly intact. Cerebellar exam normal. Normal gait. Vital Signs: 13:03 BP 113 / 90; Pulse 107; Resp 16; Temp 98.4; Pulse Ox 96% on R/A; Weight 65.77 kg; Pain dd2 5/10; 14:30 BP 126 / 78; Pulse 98; Resp 18; Pulse Ox 94% on R/A; ar8 15:30 BP 131 / 74; Pulse 98; Resp 17; Pulse Ox 95% on R/A; ar8 16:30 BP 95 / 62; Pulse 93; Resp 20; Pulse Ox 93% on R/A; ar8 13:03 Pain Scale: Adult dd2 MDM: 12:21 Medical Screening Exam initiated dr5 18:55 Differential diagnosis: Nonspecific abd pain, gastritis, pancreatitis, appendicitis, dr5 viral gastroenteritis, gastroenteritis. Data reviewed: vital signs, nurses notes, lab test result(s), amylase and lipase, CBC, white blood cell count, hemoglobin, hematocrit, platelets, electrolytes, sodium, potassium, chloride, serum bicarbonate, BUN, creatinine, serum glucose, radiologic studies, CT scan. Consideration of Admission/Observation Patient was admitted/placed on observation. Historians other than the Patient: Family Member: Sister. Care significantly affected by the following chronic conditions: Hypertension, Cancer. Care significantly affected by the following Social Determinants of Health: Poor access to healthcare and/or lack of insurance, Poor access to transportation, Problems related to employment. Counseling: I had a detailed discussion with the patient and/or guardian regarding the historical points, exam findings, and any diagnostic results supporting the discharge/admit diagnosis, the presence of at least one elevated blood pressure reading (>120/80) during this emergency department visit, lab results, radiology results, the need for outpatient follow up, for definitive care, a family practitioner, to return to the emergency department if symptoms worsen or persist or if there are any questions or concerns that arise at home. Medication response: Response to treatment: the patient's symptoms have resolved after treatment, the patient is now symptom free. Special discussion: I discussed with the patient/guardian in detail that at this point there is no indication for admission to the hospital. It is understood, however, that if the symptoms persist or worsen the patient needs to return immediately for re-evaluation. Based on the history and exam findings, there is no indication for further emergent testing or inpatient evaluation. I discussed with the patient/guardian the need to see the primary care provider for further evaluation of the symptoms. ED course: CT does not reveal any acute abnormality. Blood work also is unremarkable. All labs printed and CT scan printed and given to patient to follow primary care doctor. Patient denies any symptoms on discharge. Patient reports feel better. Patient has likely viral gastroenteritis with hemorrhoid involvement. All questions answered. Strict ER precautions given. Will send patient home with Zoan p.o.. 06/13 13:12 Order name: CBC with Diff; Complete Time: 15:04 dd2 06/13 13:12 Order name: CMP; Complete Time: 15:04 dd2 06/13 13:12 Order name: Lipase; Complete Time: 15:04 dd2 06/13 15:05 Order name: CT Abd/Pelvis - IV Contrast Only; Complete Time: 16:32 dr5 06/13 13:12 Order name: IV Saline Lock; Complete Time: 13:59 dd2 06/13 13:12 Order name: Labs collected and sent; Complete Time: 13:59 dd2 Administered Medications: 14:20 Drug: Ondansetron IVP 4 mg IVP once; over 2 minutes Route: IVP; Site: right antecubital;ar8 15:20 Follow up: Response: No adverse reaction; Marked relief of symptoms ar8 14:20 Drug: NS 0.9% IV 1000 ml IV at 1 bolus Per protocol; to be given as a bolus over 60 ar8 minutes Route: IV; Rate: 1 bolus; Site: right antecubital; 15:26 Follow up: Response: No adverse reaction; IV Status: Completed infusion; IV Intake: ar8 1000ml Disposition Summary: 06/13/25 16:49 Discharge Ordered Notes: Location: Home dr5 Condition: Stable dr5 Diagnosis - Other specified noninfective gastroenteritis and colitis dr5 Followup: dr5 - With: Emergency Department - When: As needed - Reason: Worsening of condition Followup: dr5 - With: Private Physician - When: 1 - 2 days - Reason: Recheck today's complaints, Continuance of care, Re-evaluation by your physician Discharge Instructions: - Discharge Summary Sheet dr5 - Colitis dr5 Forms: - Medication Reconciliation Form dr5 - Antibiotic Education dr5 - Patient Portal Instructions dr5 - Leadership Thank You Letter dr5 Prescriptions: - Zofran 4 mg Oral Tablet - take 1 tablet ORAL route every 12 hours As needed; 20 tablet; Refills: 0, dr5 Product Selection Permitted Signatures: Dispatcher [employer] SHAILA KITCHEN, RN RN dd2 Lamont Melara, LOGISTICS PLANNING ENGINEER-C LOGISTICS PLANNING ENGINEER-Cdr5 Abel García RN RN ar8 Corrections: (The following items were deleted from the chart) 13: 13:06 Allergies: diazepam; dd2 dd2 13: 13:06 Allergies: Valium; dd2 dd2
--- NOTE | 2025-06-13 16:50 | ER ---
Nurse's Notes [facility] Name: Roberta Villagomez Age: 59 yrs Sex: Female : 1965 Arrival Date: 06/13/2025 Time: 12:16 Bed 13 Private MD: Diagnosis: Other specified noninfective gastroenteritis and colitis Presentation: 06/13 13:03 Chief complaint: Patient states: 1 WEEK AGO FEELING FATIGUE, DIARRHEA. THIS MORNING AT dd2 6AM BEGAN HAVING NAUSEA AND VOMIT LOOKED LIKE "BLACK TAR", AND DIARRHEA BLACK. Coronavirus screen: At this time, the client does not indicate any symptoms associated with coronavirus-19. Ebola Screen: No symptoms or risks identified at this time. Initial Sepsis Screen: Does the patient meet any 2 criteria? No. Patient's initial sepsis screen is negative. Does the patient have a suspected source of infection? No. Patient's initial sepsis screen is negative. Risk Assessment: Do you want to hurt yourself or someone else? Patient reports no desire to harm self or others. Onset of symptoms was June 06, 2025. 13:03 Method Of Arrival: Ambulatory dd2 13:03 Acuity: LATOYA 3 dd2 Triage Assessment: 13:06 General: Appears uncomfortable, Behavior is calm, cooperative, appropriate for age. dd2 Pain: Complains of pain in abdomen. GI: Reports diarrhea, epigastric pain, nausea, vomiting. Historical: - Allergies: 13:06 Aspirin; dd2 13:06 Blue Dye; dd2 13:06 Codeine; dd2 13:06 EXCEDRIN; dd2 13:06 larg quantities of codeine; dd2 13:06 Morphine; dd2 13:06 GABAPENTIN; dd2 - PMHx: 13:06 CA-brain nd lung; HERNIA (CA-brain nd lung); GRAVES (CA-brain nd lung); Depressive dd2 disorder; Chronic obstructive lung disease; - PSHx: 13:06 top of lung removed -Lung CA; Total abdominal hysterectomy; Cholecystectomy; dd2 - Immunization history:: Adult Immunizations unknown. - Infectious Disease History:: Denies. - Social history:: Smoking status: Patient reports the use of cigarette tobacco products, smokes one pack cigarettes per day. Screenin:30 [facility] ED Fall Risk Assessment (Adult) History of falling in the last 3 months, ar8 including since admission No falls in past 3 months (0 pts) Confusion or Disorientation No (0 pts) Intoxicated or Sedated No (0 pts) Impaired Gait No (0 pts) Mobility Assist Device Used No (0 pt) Altered Elimination No (0 pt) Score/Fall Risk Level 0 - 2 = Low Risk Oriented to surroundings, Maintained a safe environment. Abuse screen: Denies threats or abuse. Nutritional screening: No deficits noted. Tuberculosis screening: No symptoms or risk factors identified. Assessment: 14:20 General: Appears in no apparent distress. Behavior is calm, cooperative. ar8 14:20 Pain: Complains of pain in epigastric area. Neuro: Level of Consciousness is awake, ar8 alert, obeys commands, Oriented to person, place, time, situation. Cardiovascular: Patient's skin is warm and dry. Respiratory: Airway is patent Respiratory effort is even, unlabored, Respiratory pattern is regular, symmetrical. GI: Abdomen is flat, Abd is soft and non tender Reports diarrhea, bloody stool, nausea, vomiting. : No signs and/or symptoms were reported regarding the genitourinary system. Vital Signs: 13:03 BP 113 / 90; Pulse 107; Resp 16; Temp 98.4; Pulse Ox 96% on R/A; Weight 65.77 kg; Pain dd2 5/10; 14:30 BP 126 / 78; Pulse 98; Resp 18; Pulse Ox 94% on R/A; ar8 15:30 BP 131 / 74; Pulse 98; Resp 17; Pulse Ox 95% on R/A; ar8 16:30 BP 95 / 62; Pulse 93; Resp 20; Pulse Ox 93% on R/A; ar8 13:03 Pain Scale: Adult dd2 ED Course: 12:20 Patient arrived in ED. al6 12:20 [facility] 12:20 Christopher Soliman MD is Attending Physician. dr5 13:06 Triage completed. dd2 13:06 Arm band placed on right wrist. dd2 13:59 Initial lab(s) drawn, by label designer, sent to lab. Inserted saline lock: 20 gauge in right ts3 antecubital area, using aseptic technique. Blood collected. Flushed with 10 mL NS. 14:06 Abel García, AARON is Primary Nurse. ar8 14:30 Bed in low position. Call light in reach. Side rails up X2. Provided Education on: plan ar8 of care. Client placed on continuous cardiac and pulse oximetry monitoring. NIBP monitoring applied. 14:30 No provider procedures requiring assistance completed. ar8 15:59 CT Abd/Pelvis - IV Contrast Only In Process Unspecified. EDMS 17:01 IV discontinued, intact, bleeding controlled, No redness/swelling at site. Pressure ar8 dressing applied. Administered Medications: 14:20 Drug: Ondansetron IVP 4 mg IVP once; over 2 minutes Route: IVP; Site: right antecubital;ar8 15:20 Follow up: Response: No adverse reaction; Marked relief of symptoms ar8 14:20 Drug: NS 0.9% IV 1000 ml IV at 1 bolus Per protocol; to be given as a bolus over 60 ar8 minutes Route: IV; Rate: 1 bolus; Site: right antecubital; 15:26 Follow up: Response: No adverse reaction; IV Status: Completed infusion; IV Intake: ar8 1000ml Medication: 12:30 VIS not applicable for this client. ar8 Intake: 15:26 IV: 1000ml; Total: 1000ml. ar8 Outcome: 16:49 Discharge ordered by MD. dr5 17:01 Discharged to home via wheelchair, ar8 17:01 Condition: stable 17:01 Discharge instructions given to patient, family, Instructed on discharge instructions, follow up and referral plans. medication usage, Demonstrated understanding of instructions, follow-up care, medications, Prescriptions given X 1, 17:03 Patient left the ED. ar8 Signatures: Dispatcher [employer] SHAILA KITCHEN, RN RN dd2 Lamont Melara, BERNARD CORTESP-5 Amanda Tirado Taisha ts3 Abel García RN RN ar8 Corrections: (The following items were deleted from the chart) 13:09 13:06 Allergies: diazepam; dd2 dd2 13:09 13:06 Allergies: Valium; dd2 dd2 14:35 12:30 BP 126 / 78; Pulse 98bpm; Resp 18bpm; Pulse Ox 94% RA; ar8 ar8
[2025-06-13 22:08] VITALS: TEMP 98.4
[2025-06-13 22:21] VITALS: BP 95/62; O2SAT 93
== END 2025-06-13 17:03 | disposition home or self-care (01) ==
LOC: ER 12:16
DX: K52.89 Other specified noninfective gastroenteritis and colitis (principal); F17.210 Nicotine dependence, cigarettes, uncomplicated; Z85.841 Personal history of malignant neoplasm of brain
CPT/HCPCS: 96361; 85025; 36415; 83690; 80053; 74177; 96374; 99284; Q9967; J2405; J7030